=== PATIENT | female | born 1950 | race Caucasian/White ===

== ENCOUNTER → 2017-05-01 | Outpatient (CLI) | payer OTHER ==
[~2017-05-01] MED LIST: CALC500C70 PO; KETO0.5S33 OPL; MULT-506 PO; PRED1SUS3 OPL
--- NOTE | 2017-05-01 14:30 | MAMMOGRAPHY REPORT ---
BILATERAL DIGITAL SCREENING MAMMOGRAM WITH CAD: 05/01/2017 CLINICAL HISTORY: Routine screening. Patient has no complaints. TECHNIQUE: Current study was also evaluated with a Computer Aided Detection (CAD) system. Bilateral CC and MLO views were obtained. COMPARISON: Comparison is made to exams dated: 04/25/2016 mammogram, 04/21/2015 mammogram, 08/13/2013 m ammogram, 08/01/2012 mammogram, 07/28/2011 mammogram - [facility], and 01/20/2009. BREAST COMPOSITION: The tissue of both breasts is heterogeneously dense, which may obscure small mas ses. FINDINGS: No suspicious masses, calcifications, or areas of architectural distortion are noted in ei ther breast. There has been no significant interval change compared to prior exams. IMPRESSION: ACR BI-RADS CATEGORY 1: NEGATIVE There is no mammographic evidence of malignancy. A 1 year screening mammogram is recommended. The pa tient will receive written notification of the results. Approximately 10% of breast cancers are not detected with mammography. A negative mammographic report should not delay biopsy if a clinically suggestive mass is present. Charisse Perez M.D. /:05/01/2017 07:50:09 Structural Technician: Christel Alford, [facility] letter sent: Normal 1/2 BI-RADS Code: ACR BI-RADS Category 1: Negative
== END | disposition home or self-care (01) ==
LOC: C.MAMM 07:10
PROVIDERS: ATTEND Internal Medicine Geriatric Medicine
DX: Z12.31 Encounter for screening mammogram for malignant neoplasm of breast (principal)

== ENCOUNTER → 2017-06-23 | Day surgery (SDC) | payer OTHER ==
[2017-06-09 07:36] VITALS: Ht 149.9 cm; Wt 36.4 kg
[~2017-06-23] VITALS: Ht 149.9 cm; Wt 36.4 kg
[~2017-06-23] MED LIST changes: -KETO0.5S33 OPL; -MULT-506 PO; -PRED1SUS3 OPL; +PROPOFOL IV EMULSION 10 MG/ML 20 ML VIAL IV ONE
--- NOTE | 2017-06-23 09:48 | Endo History and Physical ---
History & Physical Date of Service: Jun 23, 2017. Chief Complaint: Screening Referring Physician: Samir Ferrer History of Present Illness 66 yo CF who presents for screening colonoscopy. Past Surgical History Hx Cardiac Surgery: No Hx Internal Defibrillator: No Hx Pacemaker: No Hx Abdominal Surgery: Yes () Hx of Implantable Prosthesis: No Hx Post-Op Nausea and Vomiting: No Hx Cancer Surgery: No Hx Thoracic Surgery: No Hx Orthopedic: No Hx Urinary Tract Surgery: No Family History None Social History Smoking Status: Never Smoker Hx Substance Use: No Hx Alcohol Use: No Allergies Coded Allergies: Latex1 -Allergic Contact Dermititis (Verified Allergy, Unknown, RASH IF LATEX GLOVES WORN FOR EXTENDED PERIOD OF TIME, 06/23/17) Clarithromycin (Verified Adverse Reaction, Unknown, HALLUCINATIONS, ) Current Medications Reported Home Medications Medications Dose Route/Sig Max Daily Dose Days Date Category Os-Otto 500 Plus D (Calcium/Vitamin D) Tab 1 Tab PO BID-TID 06/29/16 Reported Vital Signs Weight (Kilograms): 36.36 Height (Feet): 4 Height (Inches): 11 Date Time Temp Pulse Resp B/P (MAP) Pulse Ox O2 Delivery O2 Flow Rate FiO2 06/23/17 09:30 36.4 67 18 125/52 (76) 100 Room Air Physical Exam General Appearance: WD/WN, no apparent distress Respiratory/Chest: Auscultation: breath sounds normal Cardiovascular: Heart Auscultation: RRR Abdomen: Bowel Sounds: normal Inspection & Palpation: soft, non-distended, no tenderness, guarding & rebound Assessment and Plan Assessment: 66 yo CF who presents for screening colonoscopy. Plan: Proceed with colonoscopy.
--- NOTE | 2017-06-23 10:16 | GI REPORT ---
Procedure Date: 06/23/2017 9:47 AM Procedure: Colonoscopy Indications: Screening for colorectal malignant neoplasm Medicines: Monitored Anesthesia Care Complications: No immediate complications. Estimated Blood Loss: Estimated blood loss: none. Procedure: Pre-Anesthesia Assessment: - Prior to the procedure, a History and Physical was performed, and patient medications and allergies were reviewed. The patient's tolerance of previous anesthesia was also reviewed. The risks and benefits of the procedure and the sedation options and risks were discussed with the patient. All questions were answered, and informed consent was obtained. Prior Anticoagulants: The patient has taken no previous anticoagulant or antiplatelet agents. ASA Grade Assessment: II - A patient with mild systemic disease. After reviewing the risks and benefits, the patient was deemed in satisfactory condition to undergo the procedure. After I obtained informed consent, the scope was passed under direct vision. Throughout the procedure, the patient's blood pressure, pulse, and oxygen saturations were monitored continuously. The scope was introduced through the anus and advanced to the cecum, identified by appendiceal orifice and ileocecal valve. The colonoscopy was performed without difficulty. The patient tolerated the procedure well. The quality of the bowel preparation was good. The ileocecal valve, appendiceal orifice, and rectum were photographed. Findings: Two sessile polyps were found in the sigmoid colon and in the ascending colon. The polyps were 4 to 6 mm in size. These polyps were removed with a hot snare. Resection and retrieval were complete. Non-bleeding internal hemorrhoids were found during retroflexion. The hemorrhoids were small. Impression: - Two 4 to 6 mm polyps in the sigmoid colon and in the ascending colon, removed with a hot snare. Resected and retrieved. - Non-bleeding internal hemorrhoids. Recommendation: - Resume previous diet. - Continue present medications. - Repeat colonoscopy for surveillance based on pathology results. - Return to primary care physician as previously scheduled. Lio Lopez DO 06/23/2017 10:15:57 AM This report has been signed electronically. Note Initiated On: 06/23/2017 9:47 AM I attest to the content of the Intraoperative Record and orders documented therein, exceptions below
--- NOTE | 2017-06-23 10:17 | Discharge Instructions ---
Endoscopy Patient Instructions Date / Procedure(s) Performed Jun 23, 2017. Colonoscopy Allergy Information Coded Allergies: Latex1 -Allergic Contact Dermititis (Verified Allergy, Unknown, RASH IF LATEX GLOVES WORN FOR EXTENDED PERIOD OF TIME, 06/23/17) Clarithromycin (Verified Adverse Reaction, Unknown, HALLUCINATIONS, ) Discharge Date / Findings Jun 23, 2017. Colon polyps Internal hemorrhoids Medication Instructions OK to resume all medications today as prescribed Reported Home Medications Medications Dose Route/Sig Max Daily Dose Days Date Category Os-Otto 500 Plus D (Calcium/Vitamin D) Tab 1 Tab PO BID-TID 06/29/16 Reported Provider Instructions Activity Restrictions - No exercising or heavy lifting for 24 hours. - Do not drink alcohol the day of the procedure. - Do not drive a car or operate machinery until the day after the procedure. - Do not make any important decisions or sign important papers in 24 hours after the procedure. Following Day: - Return to full activity which may include returning to work/school. Diet Start your diet with liquids and light foods (jello, soup, juice, toast). Then eat your usual diet if not nauseated. Treatment For Common After Affects For mild abdominal pain, bloating, or excessive gas: - Rest - Eat lightly - Lie on right side Follow-Up Information Follow-up with Samir Ferrer as scheduled Anesthesia Information What You Should Know You have had a procedure that required some medicine to reduce anxiety and discomfort. This treatment is called moderate sedation. After receiving the treatment, you may be sleepy, but you will be able to breathe on your own. The effects of the treatment may last for several hours. Follow these instructions along with Activity/Diet recommendations noted above: * Do NOT do anything where dizziness or clumsiness would be dangerous. * Rest quietly at home today, then you can be up and about tomorrow. * Have a responsible person stay with you the rest of today. * You may have had an I.V. today. If so, you may take the dressing off later today. Recommendations Call your doctor if: * Trouble breathing * Continuous vomiting for more than 24 hours * Temperature above 101 degrees * Severe abdominal pain or bloating * Pain not relieved by pain medicine ordered * There is increased drainage or redness from any incision * A large amount of rectal bleeding greater than 2-3 tablespoons. (If you had a polyp/s removed or have hemorrhoids, a small amount of blood - from the rectum is to be expected.) * You have any unanswered questions or concerns. IN THE EVENT OF A SERIOUS EMERGENCY, GO TO THE NEAREST EMERGENCY ROOM Your discharge instructions were prepared by provider Lio Lopez. Patient Instructions Signature Page Fiona Roach Patient (or Guardian) Signature/Date: I have read and understand the instructions given to me by my caregivers. Caregiver/RN/Doctor Signature/Date: The above-named patient and/or guardian has received patient instructions on this date. + Original Patient Signature Page (only) stays with chart. Please make copy for patient.
--- NOTE | 2017-06-23 10:44 | Anesthesiology Progress Note ---
Anesthesia Post Op Note Date & Time Jun 23, 2017 at 10:43 Vital Signs Pain Intensity: 0 Vital Signs Past 12 Hours Date Time Temp Pulse Resp B/P (MAP) Pulse Ox O2 Delivery O2 Flow Rate FiO2 06/23/17 10:31 61 18 144/58 (86) 97 Room Air 06/23/17 10:18 71 18 144/59 (87) 99 Room Air 06/23/17 09:30 36.4 67 18 125/52 (76) 100 Room Air Notes Mental Status: alert / awake / arousable, participated in evaluation Pt Amnestic to Procedure: Yes Nausea / Vomiting: adequately controlled Pain: adequately controlled Airway Patency, RR, SpO2: stable & adequate BP & HR: stable & adequate Hydration State: stable & adequate Anesthetic Complications: no major complications apparent
[2017-06-23 10:48] VITALS: BP 151/61; PULSE 69; O2SAT 97
== END | disposition home or self-care (01) ==
LOC: C.GI 09:10
PROVIDERS: ATTEND Internal Medicine
DX: Z12.11 Encounter for screening for malignant neoplasm of colon (principal); K63.5 Polyp of colon; K64.8 Other hemorrhoids

== ENCOUNTER → 2018-05-08 | Outpatient (CLI) | payer OTHER ==
[~2018-05-08] MED LIST changes: -PROPOFOL IV EMULSION 10 MG/ML 20 ML VIAL IV ONE
--- NOTE | 2018-05-08 15:20 | MAMMOGRAPHY REPORT ---
BILATERAL DIGITAL SCREENING MAMMOGRAM TOMOSYNTHESIS WITH CAD: 05/08/2018 CLINICAL HISTORY: Routine screening. TECHNIQUE: The study was acquired using full field digital technology and interpreted from soft copy. Breast tomosynthesis in addition to standard 2D mammography was performed. Current study was also ev aluated with a Computer Aided Detection (CAD) system. COMPARISON: Comparison is made to exams dated: 05/01/2017 mammogram, 04/25/2016 mammogram, 04/21/2015 m ammogram, 08/13/2013 mammogram, 08/01/2012 mammogram, and 07/28/2011 mammogram - [facility]. BREAST COMPOSITION: The tissue of both breasts is heterogeneously dense, which may obscure small mass es. FINDINGS: The parenchymal pattern is unchanged. No developing mass, architectural distortion or cluster of susp icious microcalcifications is seen in either breast. IMPRESSION: ACR BI-RADS CATEGORY 2: BENIGN There is no mammographic evidence of malignancy. A 1 year screening mammogram is recommended.( 019) The patient will receive written notification of the results. Some breast cancers are not detected with mammography. A negative mammographic report should not marcial y biopsy if a clinically suggestive mass is present. Tere Go M.D. ay/:05/08/2018 08:08:59 Colorer Machine: RT Liv(R)(M), [facility] letter sent: Normal 1/2 BI-RADS Code: ACR BI-RADS Category 2: Benign
== END | disposition home or self-care (01) ==
LOC: C.MAMM 07:13
PROVIDERS: ATTEND Internal Medicine Geriatric Medicine
DX: Z12.31 Encounter for screening mammogram for malignant neoplasm of breast (principal)

== ENCOUNTER → 2018-05-15 | Outpatient (CLI) | payer OTHER | END | disposition home or self-care (01) | LOC: C.LABBC 12:07 | PROVIDERS: ATTEND Nurse Practitioner Adult Health | DX: J02.9 Acute pharyngitis, unspecified (principal) ==

== ENCOUNTER 2024-05-12 12:10 | Inpatient (IN) ==
[2024-05-12 12:44] LABS: iSTAT Creatinine 1.1 mg/dl (0.6-1.3); iSTAT Hemoglobin 15.3 g/dl (12.0-16.0); iSTAT Ionized Calcium 1.13 mmol/l (1.12-1.32); iSTAT Potassium 4.1 mmol/L (3.3-5.0)
--- NOTE | 2024-05-12 12:49 | XRay Report ---
XR chest 1V portable HISTORY: Stroke symptoms. COMPARISON: None. FINDINGS: The lungs are clear. Cardiac silhouette is normal in size. No pleural effusions. No pneumot horax. Old left-sided rib fractures. Mild S-shaped scoliosis of the thoracolumbar spine. Calcificatio ns within the aortic knob. IMPRESSION: No acute process. ACT 112: Negative or not required by law. Electronically signed by: Syed Walden M.D. 05/12/2024 12:48 PM
--- NOTE | 2024-05-12 12:54 | Emergency Department Note ---
Impression & Plan Cerebellar stroke, Dementia ED Provider Note NAME: SAMUEL JAIME AGE: 73 SEX: F : 1950 ARRIVES VIA: Walk-In INFORMANT: Patient, son at bedside, triage note, prior records ED PROVIDER(S): Rick Estrella MD CHIEF COMPLAINT: Falls MEDICAL DECISION MAKING: Patient presents due to concern for falls and gait imbalance ambulatory dysfunction. IV was established and blood work was obtained. Patient CT of the head does show concern for cerebellar stroke. Unsure as to time course of onset so not a TNK candidate. Blood work shows a normal white count hemoglobin and platelet count kidney function is unremarkable. Sodium 134. BSG 122 but nonfasting not DKA. Patient's chest x-ray is unremarkable. CT of the head does show a hypodensity in the right cerebellum. Patient was ordered [address] angiography of the head and neck ordered as well as MRI brain. I did speak with the on-call hospital service and the patient was admitted to the medicine service. Imaging results deferred to inpatient service but ordered to facilitate workup. Patient CT angiography of the head and neck right posterior inferior cerebellar artery is likely occluded. Brain MRI confirms acute right cerebellar infarct involving the posterior inferior cerebellar artery territory. Old small left cerebellar infarcts. Discussion w/ other healthcare providers: Dr. Hilton inpatient medicine service Prior /Outside records reviewed: I reviewed a neurology visit from March 12, [address] Clemons. Patient currently on memantine and donepezil for dementia. Patient has had progressive decline per this note. I also reviewed part of the wellness visit from [facility] from May 2022. Patient with a history of dementia osteoporosis and dyslipidemia Differential diagnosis: Infection, dehydration, metabolic abnormality, hypo/hyperglycemia, electrolyte imbalance, anemia, UTI, pneumonia, thyroid dysfunction among others were considered. Diagnostics, as interpreted by me: ECG: Normal sinus rhythm heart rate of 68, normal intervals, normal axis no ST elevations, T wave version in V2. No significant change for comparison from September 19, 2002 Cardiac monitoring: An order was placed for continuous cardiac monitoring. The monitor shows a rate of 62 with sinus rhythm. Patient was placed on pulse oximetry Medical decision rules: None Imaging studies: I informally interpreted the patient's chest x-ray does not show evidence of pneumonia or pneumothorax with formal report to follow. HPI: Patient presents with son at bedside due to concern for worsening falls. He states that patient had 3 falls today. 2 times when getting up from the couch fell back onto the couch and another time where she hit the side of a cabinet with her shoulder. No reported head strike or LOC. One of the falls he did catch on one of his in-home cameras. Patient denies any chest pains no headache no nausea vomiting. Patient denies any numbness tingling or focal weakness. No prior history of stroke. Son reports that she has had decreased appetite in the last several days. Patient is compliant with medications and does live with the son. Patient's other son is power of document review attorney but lives in [place]. PAST MEDICAL HISTORY: See Below PAST SURGICAL HISTORY: See Below SOCIAL HISTORY: See Below HOME MEDICATIONS: See Below ALLERGIES: See Below VITALS: See Below PHYSICAL EXAMINATION: GENERAL: NAD, non-toxic. EYE EXAM: Normal conjunctiva. PERRL, no anisocoria and EOM's grossly intact w/o pain. OROPHARYNX: Moist mucus membranes, grossly normal dentition. NECK: Trachea midline, no stridor. LUNGS: Clear to auscultation. Normal chest wall mechanics. HEART: NSR, no MRG. ABDOMEN: Abdomen soft, non-tender, no masses, no rebound or guarding. BACK: No CVA TTP. SKIN: No rashes and no bruising. UPPER EXTREMITIES: Upper extremities are grossly normal. LOWER EXTREMITIES: Grossly normal, no edema. NEURO EXAM: Awake and alert follows basic commands, cranial nerves II-XII grossly intact, normal speech, moves all 4 extremities. Good [id number], unable to follow commands with [id number] Past Med/Surg History Problem List (Updated 05/12/24 @ 19:03 by Rick Estrella MD) Cerebellar stroke (Acute) Hypothyroidism Vitamin B12 deficiency Sleep disturbance Osteoporosis (Acute) Dyslipidemia (Acute) Underweight Anxiety Dementia (Acute) Medical History Hx of fracture of foot (10/17/22) currently in cast on left foot Acute nondisplaced transverse fracture within the proximal shaft of the left fifth metatarsal consistent with a Taylor fracture. From fall. Saw orthopedics History of Lyme disease Osteoporosis Internal hemorrhoids Postmenopausal atrophic vaginitis Surgical History History of surgical procedure on eye proper using laser lt eye SLT History of History of colonoscopy S/P LEEP Family History Father Atherosclerotic vascular disease Mother Stroke Grandmother Family history of diabetes mellitus Other No family history of adverse response to anesthesia Denies family history of Ovarian cancer Prostate cancer Myocardial infarction Breast cancer Colorectal cancer Social History Smoking Status: Never smoker Second Hand Exposure: No; Do You Dip or Chew Tobacco: No; Hx Alcohol Use: No Hx Substance Use: No Preferred Language: Macedonian Communication Ability: Effective Visual Impairment: Limited Hearing Ability: Normal Head Bucker Required: No Beliefs That Will Affect Care: None Current Living Situation: Family Current Living Situation Comment: sons live with pt current occupational status: retired How many Children do You have: 3 Feels Safe at Home: Yes Childhood Exposure to Second-Hand Smoke: Yes (father smoked in home ) caffeine: No Physical Activity Frequency: Daily Physical Activity Frequency Comment: walks outside Seatbelt Use: always Sunscreen Use: Yes Assistive Devices: Glasses Allergies Allergies Allergy/AdvReac Type Severity Reaction Status Date / Time clarithromycin AdvReac Intermediate HALLUCINATI Verified 03/12/24 08:35 ONS latex AdvReac Mild RASH IF Verified 03/12/24 08:35 LATEX GLOVES WORN FOR EXTENDED PERIOD OF TIME Home Meds Home Medications Medication Instructions Recorded Confirmed calcium carbonate (Calcium 600) 600 mg PO QAM 05/13/22 05/12/24 Previous Rx's Medication Instructions Recorded levothyroxine 25 mcg tablet 25 mcg PO DAILY #30 tabs 01/11/24 mecobalamin (vitamin B12) 1,000 1,000 mcg PO DAILY #30 tabs 01/11/24 mcg chewable tablet mirtazapine 7.5 mg tablet 7.5 mg PO DAILY #30 tabs 02/19/24 donepezil 10 mg tablet 10 mg PO QAM 90 days #90 tabs 03/12/24 memantine 10 mg tablet 10 mg PO BID 90 days #180 tabs 03/12/24 Results & Data (ED) Vital Signs Vital Signs - 24 hr 05/12/24 12:12 05/12/24 12:30 05/12/24 12:36 Temperature 36.7 C Temperature Source Temporal Artery Scan Pulse Rate 63 Pulse Rate [Apical] 65 Pulse Rhythm Regular Pulse Strength Normal Respiratory Rate 19 16 Respiratory Effort / Characteristics Non-Labored Respiratory Depth Normal Respiratory Pattern Regular Blood Pressure 161/73 H Blood Pressure [Right Arm] 155/72 H Blood Pressure Mean 102 Blood Pressure Mean [Right Arm] 99 Blood Pressure Position Sitting Pulse Oximetry 97 95 96 Oxygen Delivery Method Room Air Room Air Room Air Sepsis Recent Fever Within 48 Hours No Sepsis New/Unexplained Change in Mental Status No Sepsis Action Taken by Nursing No Action Required 05/12/24 13:15 05/12/24 13:17 05/12/24 13:21 Temperature Temperature Source Pulse Rate 64 61 Pulse Rate [Apical] Pulse Rhythm Pulse Strength Respiratory Rate 18 Respiratory Effort / Characteristics Respiratory Depth Respiratory Pattern Blood Pressure Blood Pressure [Right Arm] Blood Pressure Mean Blood Pressure Mean [Right Arm] Blood Pressure Position Pulse Oximetry Oxygen Delivery Method Room Air Sepsis Recent Fever Within 48 Hours Sepsis New/Unexplained Change in Mental Status Sepsis Action Taken by Nursing 05/12/24 13:27 05/12/24 13:30 05/12/24 13:33 Temperature Temperature Source Pulse Rate 59 L 61 Pulse Rate [Apical] Pulse Rhythm Pulse Strength Respiratory Rate 17 15 Respiratory Effort / Characteristics Respiratory Depth Respiratory Pattern Blood Pressure 154/76 H Blood Pressure [Right Arm] Blood Pressure Mean 98 Blood Pressure Mean [Right Arm] Blood Pressure Position Pulse Oximetry Oxygen Delivery Method Sepsis Recent Fever Within 48 Hours Sepsis New/Unexplained Change in Mental Status Sepsis Action Taken by Nursing 05/12/24 13:48 05/12/24 14:00 05/12/24 14:15 Temperature Temperature Source Pulse Rate 66 77 Pulse Rate [Apical] Pulse Rhythm Pulse Strength Respiratory Rate 11 L 12 Respiratory Effort / Characteristics Respiratory Depth Respiratory Pattern Blood Pressure 131/72 Blood Pressure [Right Arm] Blood Pressure Mean 85 Blood Pressure Mean [Right Arm] Blood Pressure Position Pulse Oximetry Oxygen Delivery Method Sepsis Recent Fever Within 48 Hours Sepsis New/Unexplained Change in Mental Status Sepsis Action Taken by Nursing 05/12/24 15:42 Temperature Temperature Source Pulse Rate Pulse Rate [Apical] 66 Pulse Rhythm Pulse Strength Respiratory Rate 18 Respiratory Effort / Characteristics Respiratory Depth Respiratory Pattern Blood Pressure Blood Pressure [Right Arm] 170/97 H Blood Pressure Mean Blood Pressure Mean [Right Arm] 121 Blood Pressure Position Pulse Oximetry 98 Oxygen Delivery Method Room Air Sepsis Recent Fever Within 48 Hours Sepsis New/Unexplained Change in Mental Status Sepsis Action Taken by Residential Medications Current Medication List: was personally reviewed by me Laboratory Data Attestation: I reviewed the patient's lab results. 05/12/24 12:20 05/12/24 12:20 Lab Results 05/12/24 05/12/24 Range/Units 12:20 12:32 WBC 10.33 (4.8-10.8) K/ul RBC 4.72 (4.20-5.40) M/uL Hgb 14.4 (12.0-16.0) g/dl POC Hgb 15.3 (12.0-16.0) g/dl Hct 43.9 (37.0-47.0) % POC Hct 45 (37-47) % MCV 93.0 (80.0-100.0) fL MCH 30.5 (25.0-34.0) pg MCHC 32.8 (32.0-36.0) g/dL RDW Std Deviation 45.0 (36.4-46.3) fL RDW Coeff of Arlyn 13.2 (11.5-14.5) % Plt Count 215 (130-400) K/uL MPV 12.8 H (9.4-12.4) fL PT 10.9 (9.0-12.0) Seconds INR 1.0 (0.9-1.1) APTT 23 (21-31) Seconds PTT Ratio 0.9 POC Sodium 138 (135-144) mmol/L Sodium 134 L (136-145) mmol/L POC Potassium 4.1 (3.3-5.0) mmol/L Potassium 4.3 (3.5-5.1) mmol/L POC Chloride 103 (101-112) mmol/L Chloride 100 (98-107) mmol/L Carbon Dioxide 26 (21-32) mmol/L POC Total CO2 24 (24-31) mmol/L Anion Gap 8 (3-11) POC Anion Gap 16.0 (16-25) mmol/L POC BUN 18 (7-18) mg/dl BUN 18 (6-23) mg/dl Creatinine 1.04 (0.6-1.2) mg/dl POC Creatinine 1.1 (0.6-1.3) mg/dl Est Cr Clr Drug Dosing 30.6 ml/min Est GFR ( Amer) 61.3 ml/min Est GFR (Non-Af Amer) 52.9 ml/min BUN/Creatinine Ratio 17.3 (10-20) Glucose 122 H (70-99(Fasting)) mg/dl POC Glucose (other) 127 H (70-99) mg/dl Calcium 9.9 (8.6-10.3) mg/dl POC Ioniz Calcium Destiny 1.13 (1.12-1.32) mmol/l Magnesium 2.4 (1.7-2.4) mg/dl Total Bilirubin 0.3 (0.2-1.0) mg/dl AST 17 (13-39) U/L ALT 21 (7-52) U/L Alkaline Phosphatase 66 (34-104) U/L Total Protein 8.2 (6.0-8.3) gm/dl Albumin 4.6 (3.4-5.0) gm/dl Globulin 3.6 (2.5-4.0) gm/dl Albumin/Globulin Ratio 1.3 (0.9-2) Administered Medications Discontinued Medications Aspirin (Aspirin Chew 324 Mg) 324 mg PO NOW STA Stop: 05/12/24 13:16 Last Admin: 05/12/24 13:23 Dose: 324 mg Documented By: JEAN Clopidogrel Bisulfate (Clopidogrel Bisulfate 300 Mg Tab) 300 mg PO NOW STA Stop: 05/12/24 15:23 Last Admin: 05/12/24 15:58 Dose: 300 mg Documented By: KYLE Sodium Chloride (Nss) 500 mls @ 999 mls/hr IV .Q31M ONE Stop: 05/12/24 13:44 Last Infusion: 05/12/24 15:14 Dose: Infused Documented By: Admin: 05/12/24 13:26 Dose: 999 mls/hr Documented By: JEAN Ioversol (Optiray 320 125ml) 112 ml IV ONCE ONE Stop: 05/12/24 13:58 Last Admin: 05/12/24 13:57 Dose: 112 ml Documented By: UBALDO Imaging Data Radiologist's Impression: Chest X-Ray 05/12/24 12:36 XR chest 1V portable HISTORY: Stroke symptoms. COMPARISON: None. FINDINGS: The lungs are clear. Cardiac silhouette is normal in size. No pleural effusions. No pneumothorax. Old left-sided rib fractures. Mild S-shaped scoliosis of the thoracolumbar spine. Calcifications within the aortic knob. IMPRESSION: No acute process. ACT 112: Negative or not required by law. Electronically signed by: Syed Walden M.D. 05/12/2024 12:[address] 05/12/24 12:[address] DOSE: 547.75 mGy.cm HISTORY: Neuro deficit, acute, stroke suspected TECHNIQUE: Multiaxial CT images of the head were performed without the use of intravenous contrast. Automated exposure control was utilized for this study. A dose lowering technique was utilized adhering to the principles of ALARA. Comparison: Brain MRI 08/27/2019. Findings: The paranasal sinuses and mastoid air cells are clear. The calvarium and skull base are intact. There is no mass, hematoma, or midline shift. White matter hypodensity is nonspecific but suggestive of microvascular ischemic change. The ventricles and sulci demonstrate mild age-related involutional changes. Wedge-shaped hypodensity within the right cerebellar hemisphere measuring up to 2.5 cm consistent with an acute to subacute infarct. There is an old linear lacunar infarct within the left cerebellar hemisphere. Impression: Wedge-shaped hypodensity within the right cerebellar hemisphere consistent with an acute to subacute cerebellar infarct. ACT 112: Negative or not required by law. Electronically signed by: Syed Walden M.D. 05/12/2024 1:04 PM Head CTA 05/12/24 13:42 HEAD & NECK CTA HISTORY: Fall. Stroke symptoms. TECHNIQUE: Multiaxial CT images of the head were performed following the intravenous administration of contrast to evaluate the major cerebral vessels. Multiaxial CT images of the neck were also performed following the intravenous administration of contrast to evaluate the major cervical vessels. 3D/MIP images were also obtained. Sagittal and coronal reformats were reviewed. A dose lowering technique was utilized adhering to the principles of ALARA. COMPARISON: Head CT 05/12/2024. FINDINGS: Redemonstration of the wedge-shaped hypodensity within the right cerebellar hemisphere consistent with an acute to subacute infarct Visualized intracranial internal carotid arteries, distal vertebral arteries, and basilar artery are widely patent. There is no significant stenosis, occlusion, or aneurysm seen within the bilateral ACAs, MCAs, or departmental buyer. The right posterior inferior cerebellar artery is only partially visualized and likely occluded. This likely accounts for the right cerebellar infarct.. The major dural venous sinuses are patent. The visualized aortic arch and normal in caliber. There is mild focal narrowing within the proximal left subclavian artery and mid right subclavian artery. Subtle irregularity within the mid bilateral internal carotid arteries and distal vertebral arteries suggesting the possibility of fibromuscular dysplasia. There is associated moderate focal narrowing within the distal right vertebral artery at the C2 level on image 219. This demonstrates up to 50% stenosis. However, no dissection identified. The left vertebral artery is dominant. Minimal calcified plaque within the right carotid bifurcation. There is no significant stenosis, occlusion, or dissection identified within the bilateral common carotid, internal carotid, or left vertebral artery. IMPRESSION: 1. Redemonstration of the wedge-shaped hypodensity within the right cerebellar hemisphere consistent with an acute to subacute infarct. 2. The right posterior inferior cerebellar artery is only partially visualized and likely occluded. This likely accounts for the right cerebellar infarct.. 3. Moderate focal narrowing within the distal right vertebral artery at the C2 level of approximately 50%. 4. Subtle irregularity within the mid bilateral internal carotid arteries and distal vertebral arteries suggesting the possibility of fibromuscular dysplasia. ACT 112: Negative or not required by law. Electronically signed by: Syed Walden M.D. 05/12/2024 2:43 PM Neck CTA 05/12/24 13:42 HEAD & NECK CTA HISTORY: Fall. Stroke symptoms. TECHNIQUE: Multiaxial CT images of the head were performed following the intravenous administration of contrast to evaluate the major cerebral vessels. Multiaxial CT images of the neck were also performed following the intravenous administration of contrast to evaluate the major cervical vessels. 3D/MIP images were also obtained. Sagittal and coronal reformats were reviewed. A dose lowering technique was utilized adhering to the principles of ALARA. COMPARISON: Head CT 05/12/2024. FINDINGS: Redemonstration of the wedge-shaped hypodensity within the right cerebellar hemisphere consistent with an acute to subacute infarct Visualized intracranial internal carotid arteries, distal vertebral arteries, and basilar artery are widely patent. There is no significant stenosis, occlusion, or aneurysm seen within the bilateral ACAs, MCAs, or departmental buyer. The right posterior inferior cerebellar artery is only partially visualized and likely occluded. This likely accounts for the right cerebellar infarct.. The major dural venous sinuses are patent. The visualized aortic arch and normal in caliber. There is mild focal narrowing within the proximal left subclavian artery and mid right subclavian artery. Subtle irregularity within the mid bilateral internal carotid arteries and distal vertebral arteries suggesting the possibility of fibromuscular dysplasia. There is associated moderate focal narrowing within the distal right vertebral artery at the C2 level on image 219. This demonstrates up to 50% stenosis. However, no dissection identified. The left vertebral artery is dominant. Minimal calcified plaque within the right carotid bifurcation. There is no significant stenosis, occlusion, or dissection identified within the bilateral common carotid, internal carotid, or left vertebral artery. IMPRESSION: 1. Redemonstration of the wedge-shaped hypodensity within the right cerebellar hemisphere consistent with an acute to subacute infarct. 2. The right posterior inferior cerebellar artery is only partially visualized and likely occluded. This likely accounts for the right cerebellar infarct.. 3. Moderate focal narrowing within the distal right vertebral artery at the C2 level of approximately 50%. 4. Subtle irregularity within the mid bilateral internal carotid arteries and distal vertebral arteries suggesting the possibility of fibromuscular dysplasia. ACT 112: Negative or not required by law. Electronically signed by: Syed Walden M.D. 05/12/2024 2:43 PM Brain MRI 05/12/24 13:43 Brain MRI WITHOUT CONTRAST HISTORY: R sided cerebellar cva TECHNIQUE: Multiplanar multisequence MRI of the brain was performed without the use of contrast. COMPARISON STUDY: Head CT 05/12/2024. Brain MRI 08/27/2019. FINDINGS: Wedge-shaped focus of restricted diffusion within the right cerebellar hemisphere measuring up to 3.4 cm consistent with an acute infarct. This is located within the right posterior inferior cerebellar artery territory. No additional acute infarcts within the brain. Mild edema at the right cerebral infarct without significant mass effect. Moderate atrophy and mild microvascular ischemic changes are noted. The midline structures are intact. There is no mass, hematoma, or midline shift. The major vascular flow-voids at the skull base are well-maintained. Old lacunar infarcts within the left cerebellar hemisphere. Prior bilateral lens replacement. The paranasal sinuses and mastoid air cells are clear. Punctate scattered foci of susceptibility artifact within the brain. This raises the possibility of cerebral amyloid angiopathy. IMPRESSION: 1. Confirmation of the acute right cerebral infarct involving the posterior inferior cerebellar artery territory. 2. Old small left cerebellar infarcts. 3. Atrophy and microvascular ischemic changes. 4. Punctate scattered foci of susceptibility artifact within the brain. This raises the possibility of cerebral amyloid angiopathy. No acute intracranial hemorrhage. ACT 112: Negative or not required by law. Electronically signed by: Syed Walden M.D. 05/12/2024 3:45 PM Discharge Plan Visit Data Chief Complaint: Fall Stated Complaint: loss of appetite, fall, dizziness ED Provider: Rick Estrella Discharge Problem: Cerebellar stroke, Dementia Patient Disposition: Admitted As Inpatient Discharge Instructions Interventions: ED Discharge Assessment Last Done: 05/12/24 17:55 Discharge Problem: Dementia Qualifiers: Dementia type: unspecified type
[2024-05-12 13:00] LABS: Hematocrit (blood only) 43.9 % (37.0-47.0); Hemoglobin 14.4 g/dl (12.0-16.0); Mean Corpuscular Hemoglobin 30.5 pg (25.0-34.0); Mean Corpuscular Hgb Conc 32.8 g/dL (32.0-36.0); Mean Platelet Volume 12.8 fL (9.4-12.4); Platelet Count 215 K/uL (130-400); RDW Coefficient of Variation 13.2 % (11.5-14.5); Red Blood Count 4.72 M/uL (4.20-5.40); White Blood Count 10.33 K/ul (4.8-10.8)
--- NOTE | 2024-05-12 13:06 | CT Scan Report ---
HEAD CT NONCONTRAST CT DOSE: 547.75 mGy.cm HISTORY: Neuro deficit, acute, stroke suspected TECHNIQUE: Multiaxial CT images of the head were performed without the use of intravenous contrast. A utomated exposure control was utilized for this study. A dose lowering technique was utilized adheri ng to the principles of ALARA. Comparison: Brain MRI 08/27/2019. Findings: The paranasal sinuses and mastoid air cells are clear. The calvarium and skull base are int act. There is no mass, hematoma, or midline shift. White matter hypodensity is nonspecific but sugges tive of microvascular ischemic change. The ventricles and sulci demonstrate mild age-related involuti onal changes. Wedge-shaped hypodensity within the right cerebellar hemisphere measuring up to 2.5 cm consistent with an acute to subacute infarct. There is an old linear lacunar infarct within the left cerebellar hemisphere. Impression: Wedge-shaped hypodensity within the right cerebellar hemisphere consistent with an acute to subacute cerebellar infarct. ACT 112: Negative or not required by law. Electronically signed by: Syed Walden M.D. 05/12/2024 1:04 PM
[2024-05-12 13:15] LABS: Partial Thromboplastin Ratio 0.9; Partial Thromboplastin Time 23 Seconds (21-31); Prothrombin Time 10.9 Seconds (9.0-12.0)
[2024-05-12] MEDS: ASPIRIN CHEW 324 MG PO STA (13:23)
[2024-05-12 13:24] LABS: Albumin Globulin Ratio 1.3 (0.9-2); Albumin Level 4.6 gm/dl (3.4-5.0); BUN Creatinine Ratio 17.3 (10-20); Bilirubin,Total 0.3 mg/dl (0.2-1.0); Calcium 9.9 mg/dl (8.6-10.3); Creatinine Clr Calc Pharmacy 30.6 ml/min; Est GFR (African American) 61.3 ml/min; Est GFR (Non-African American) 52.9 ml/min; Globulin 3.6 gm/dl (2.5-4.0); Magnesium 2.4 mg/dl (1.7-2.4); Total Protein 8.2 gm/dl (6.0-8.3)
[2024-05-12] MEDS: SODIUM CHLORIDE 0.9% 500 ML IV ONE (13:26)
[2024-05-12 13:29] LABS: Potassium 4.3 mmol/L (3.5-5.1)
[2024-05-12] MEDS: OPTIRAY 320 125ml IV ONE (13:57)
--- NOTE | 2024-05-12 14:03 | History & Physical Report ---
Date of Service May 12, 2024 Assessment & Plan (1) Cerebellar stroke: Plan: Right cerebellar infarct in the territory of Right PICA (posterior inferior cerebellar artery) - no additional acute infarcts within brain per radiologist read of brain MRI - likely occurred sometime in the morning on 05/12/24 PLAN: - given one dose of aspirin 325mg in ER which has been discontinued - to continue on Plavix monotherapy in order to prevent potential bleeding and swelling in the posterior fossa, where there is not much space to expand without causing mass effects - starting on Atorvastatin 40mg PO qAM to start tomorrow morning - Plavix 75mg PO qAM - allowing for permissive hypertension up to 200/105, Labetalol 5mg IV q6h prn if pt exceeds - daily EKGs along with telemetry - obtain echocardiogram to assess for septal defect which could have allowed embolus to travel from systemic circulation to the R PICA - continue to monitor vital signs - periodic assessments for alertness and orientation, speech, coordination, strength, and sensation - continue to monitor for mental status changes (2) Dyslipidemia: Plan: - will be started on Atorvastatin 40mg PO qAM as part of stroke protocol - Plavix 75mg PO qAM starting tomorrow morning - obtain lipid panel (3) Vitamin B12 deficiency: Plan: consider obtaining B12 level, but less concern as most recent value was above normal range (4) Dementia: Plan: - periodic assessments for alertness and orientation, speech, coordination, strength, and sensation - continue to monitor for mental status changes - continue home medications: donepezil 10mg PO qAM and memantine 10mg PO BID (5) Osteoporosis: Plan: continue on calcium carbonate 600mg PO qAM (6) Anxiety: Plan: - periodic assessments for alertness, orientation, and speech patterns - continue to monitor for mental status changes - continue on home medication: mirtazapine 7.5mg PO QD (7) Hypothyroidism: Plan: continue on home medication: levothyroxine 25mcg PO QD Admission and Anticipated Discharge Date Admission Date: admission: 05/12/24 History of Present Illness Chief Complaint: falls, instability, no head trauma Primary Care Provider: Arthur Telles DO Fiona is a 73yo female with PMHx hypothyroidism, vitamin B12 deficiency, dyslipidemia, Alzheimer's dementia on memantine and donepezil, osteoporosis, and anxiety BIB son for concerns about increasing frequency of falls. No history of prior stroke, not previously on statin. Patient lives at home with son and sister, son endorses that patient had very little energy and appetite yesterday (05/11/24) upon waking up, compared to the day before (05/10/24) in which she had good energy and appetite, son denies any symptoms of nausea, vomiting, headache, dizziness, weakness, numbness or tingling. Today, patient had 3 falls: 1. getting up from sitting on couch, patient took a step or 2 before falling to her left side back onto the couch around 9:30am 2. similar to first 3. in kitchen, patient was walking and fell to her left and hit her left shoulder on wood cupboard around 10:30-11am No head trauma with any of the falls, no nausea, vomiting, headache, weakness, numbness or tingling was found at the time, but son endorses pt was wobbly on her feet as he tried to support her. Due to the falls and lack of balance, son decided to bring her to ED. En route to [facility] ED, son endorses patient had slurred speech and would repeat herself a few times such as things she saw on road signs. In the ED: patient in room with her son and son's partner, patient alert and oriented to person, appearing in pleasant mood with good eye contact and not appearing in acute distress. Patient not endorsing any pain, nausea, dizziness, headache, weakness, numbness, or tingling at time of interview, around 4pm. Son was able to relay the above information about yesterday and today's events. Patient, however, did not recall having any falls earlier today, nor did she recall being more tired and having less appetite than usual yesterday. Allergies Allergy/AdvReac Type Severity Reaction Status Date / Time clarithromycin AdvReac Intermediate HALLUCINATI Verified 03/12/24 08:35 ONS latex AdvReac Mild RASH IF Verified 03/12/24 08:35 LATEX GLOVES WORN FOR EXTENDED PERIOD OF TIME Home Medications Medication Instructions Recorded Confirmed Type calcium carbonate (Calcium 600) 600 mg PO QAM 05/13/22 05/12/24 History levothyroxine 25 mcg tablet 25 mcg PO DAILY #30 tabs 01/11/24 05/12/24 Rx mecobalamin (vitamin B12) 1,000 1,000 mcg PO DAILY #30 tabs 01/11/24 05/12/24 Rx mcg chewable tablet mirtazapine 7.5 mg tablet 7.5 mg PO DAILY #30 tabs 02/19/24 05/12/24 Rx donepezil 10 mg tablet 10 mg PO QAM 90 days #90 tabs 03/12/24 05/12/24 Rx memantine 10 mg tablet 10 mg PO BID 90 days #180 tabs 03/12/24 05/12/24 Rx Past Med/Surg History Problem List (Updated 05/12/24 @ 17:01 by Jason Hummel DO) Cerebellar stroke Hypothyroidism Vitamin B12 deficiency Sleep disturbance Osteoporosis (Acute) Dyslipidemia (Acute) Underweight Anxiety Dementia Medical History Hx of fracture of foot (10/17/22) History of Lyme disease Osteoporosis Internal hemorrhoids Postmenopausal atrophic vaginitis Surgical History History of surgical procedure on eye proper using laser History of History of colonoscopy S/P LEEP Family History Father Atherosclerotic vascular disease Mother Stroke Grandmother Family history of diabetes mellitus Other No family history of adverse response to anesthesia Denies family history of Ovarian cancer Prostate cancer Myocardial infarction Breast cancer Colorectal cancer Social History Smoking Status: Never smoker Second Hand Exposure: No; Do You Dip or Chew Tobacco: No; Hx Alcohol Use: No Hx Substance Use: No Preferred Language: [place] Communication Ability: Effective Visual Impairment: Limited Hearing Ability: Normal Regulatory Manager Required: No Beliefs That Will Affect Care: None Current Living Situation: Family Current Living Situation Comment: sons live with pt current occupational status: retired How many Children do You have: 3 Feels Safe at Home: Yes Childhood Exposure to Second-Hand Smoke: Yes (father smoked in home ) caffeine: No Physical Activity Frequency: Daily Physical Activity Frequency Comment: walks outside Seatbelt Use: always Sunscreen Use: Yes Assistive Devices: Glasses Review of Systems Review of Systems: All systems reviewed & are unremarkable except as noted in HPI & below Constitutional: as per Subjective / HPI Physical Exam Constitutional: appears stated age, not appearing in acute distress, lying comfortably in ED room bed A&O to self and place. Eyes: PERRL, conjunctivae normal, anicteric sclerae ENMT: external ear and nose normal, oropharynx normal Neck: normal visual inspection Respiratory: normal respiratory effort, lungs clear to auscultation Cardiovascular: RRR, no murmur, no edema Gastrointestinal (Abdomen): normal bowel sounds, soft, nontender, no hepatosplenomegaly Musculoskeletal: no cyanosis or clubbing, extremities motor strength 5/5 Head/Neck/Chest: normocephalic and head atraumatic Skin: no rashes, warm and dry Neurologic: patellar DTR's 2+ bilat, sensation intact and PERRL, EOMI, accommodation nl, no face palsy, no dysarthria CN's II-XI intact bilaterally and moves all extremities Coordination: + abnormal [id number]-bt-[id number] test Able to follow most commands well. Some difficulty isolating one body part at a time, such as moving tongue to the side while keeping head still. Coordination difficulty as well, particularly mbah-[id number] test, in which she was able to move her legs superiorly, parallel a few inches away from opposite chi b/l. Able to stand unsupported with eyes closed (son standing close behind in case support is needed), slight wobbling but no significant listing in any direction No pronator drift observed. Gait slightly unsteady but was able to walk in a straight line from one end of room to the other and back, unsupported. Psychiatric: Orientation: alert, oriented to person and cooperative Eye Con tact: good eye contact Speech: normal rate/rhythm/volume of speech Affect: euthymic affect Insight: + limited insight Judgment: + limited judgement Results & Data Results & Data Vital Signs (Past 12 Hours) Vital Signs Temp Pulse Pulse Resp BP BP Pulse Ox 05/12/24 13:33 61 15 05/12/24 13:30 154/76 H 05/12/24 13:27 59 L 17 05/12/24 13:21 61 18 05/12/24 13:17 64 05/12/24 12:36 96 05/12/24 12:30 65 16 155/72 H 95 05/12/24 12:12 36.7 C 63 19 161/73 H 97 O2 Del Method 05/12/24 13:33 05/12/24 13:30 05/12/24 13:27 05/12/24 13:21 05/12/24 13:17 05/12/24 12:36 Room Air 05/12/24 12:30 Room Air 05/12/24 12:12 Room Air Diagnostic Findings CT Head & Neck: CThead: wedge-shaped hypodensity within the right cerebellar hemisphere consistent with acute to subacute cerebellar infarct. CTAhead/neck: Right PICA partially visualized and likely occluded, likely accounting for right cerebellar infarct. - Moderate focal narrowing at the distal right vertebral artery at C2 approximately 50%.? Changes consistent with fibromuscular dysplasia. MRI Brain: FINDINGS: Wedge-shaped focus of restricted diffusion within the right cerebellar hemisphere measuring up to 3.4 cm consistent with an acute infarct. This is located within the right posterior inferior cerebellar artery territory. No additional acute infarcts within the brain. Mild edema at the right cerebral infarct without significant mass effect. Moderate atrophy and mild microvascular ischemic changes are noted. The midline structures are intact. There is no mass, hematoma, or midline shift. The major vascular flow-voids at the skull base are well-maintained. Old lacunar infarcts within the left cerebellar hemisphere. Prior bilateral lens replacement. The paranasal sinuses and mastoid air cells are clear. Punctate scattered foci of susceptibility artifact within the brain. This raises the possibility of cerebral amyloid angiopathy. IMPRESSION: 1. Confirmation of the acute right cerebellar infarct involving the posterior inferior cerebellar artery territory. 2. Old small left cerebellar infarcts. 3. Atrophy and microvascular ischemic changes. 4. Punctate scattered foci of susceptibility artifact within the brain. This raises the possibility of cerebral amyloid angiopathy. No acute intracranial hemorrhage. Code Status & VTE Plan Code Status currently DNR, DNI Supervising Physician Co-Signing Physician Notes Patient seen and examined, chart reviewed, case discussed with Dr. Hummel and I agree with the assessment and plan as above except as otherwise noted Labs and images reviewed 73-year-old female with past medical history of Alzheimer's dementia, progressive on memantine/donepezil. Last MMSE 22/30 and independent for basic ADLs only. Prior MRIs with atrophy and chronic small vessel change. No prior history of CVA/WV/CAD. EKG normal sinus rhythm with no territorial ST segment changes, concordant T wave inversion in V2. Presented to the ER with gait disturbance, poor balance. Left wrist bulge at the side. Unclear onset of symptoms. Last known well suspected evening prior but exact time of onset not known. CThead is with a wedge-shaped hypodensity within the right cerebellar hem isphere consistent with acute to subacute cerebellar infarct. CTAhead/neck:: Right PICA partially visualized and likely occluded, likely accounting for right cerebellar infarct. Moderate focal narrowing at the distal right vertebral artery at C2 approximately 50%.? Changes consistent with fibromuscular dysplasia. MRI pending Echo pending Patient received aspirin 325 mg while in the ER Was not evaluated as a stroke alert due to suspected subacute findings and unclear onset. Thrombolysis not indicated due to unclear onset, and suspected onset greater than 4 hours. Patient seen at the bedside. Good strength, elbow flexion, shoulder internal rotation/external rotation, abduction, ankle dorsiflexion/plantarflexion all 5/5 with Beronica strength. Endorses sensation is intact to soft touch in hands and feet. Kyqk-pi-cbel is with some difficulty finding heel to within less than 6 inches of the opposite chi, but is able to collide heel up and down with a smooth motion. Dysmetria appears improved from prior report. No facial asymmetry. Pupils are equal. Vision and hearing are grossly intact. Acute right celebrate lower stroke presenting with left dysmetria/gait inst ability Case was reviewed with neurology. Recommended Plavix load now, and then transition to Plavix monotherapy. DAPT not unreasonable however given increased risk of complications if there is hemorrhagic conversion/edema in her cerebellar stroke we will dissipate Plavix monotherapy at this time. Permissive hypertension until morning of 05/13 given unclear onset of symptoms. To minimize risk of bleeding will lower parameters to goal BP less than 200/105. Labetalol on-call. Extensive discussion with patient, and family including surrogate decision makers by phone. Covered patient's progression, general stroke management, and her current reevaluation. No additional questions at time of call. CODE STATUS reviewed and discussed nature and success rates of resuscitation, and full code/conditional code/DNR/DNI and what each entails. Sons Ed and Mark are present for call or surrogate DM, Fiona due to dementia is unable to elicit the risk/benefits of resuscitation as they apply to her due to dementia however is included in the call with her sons. They agree that she would not want aggressive measures should she undergo an arrest, and CPR/intubation are not consistent with her goals of care and would like CODE STATUS to be DNR/DNI. CODE STATUS updated. No additional concerns at time of discussion. Agree with remaining workup above. Patient is sinus on admission Resident Activity Tracking Resident Involvement: Resident Care Provided Care Provided: Adult Hospital Medicine (4) Dementia Alzheimer's disease onset: unspecified onset Dementia behavioral or psychological symptom: with anxiety Dementia severity: moderate Dementia type: Alzheimer's Qualified Code(s): G30.9 - Alzheimer's disease, unspecified; F02.B4 - Dementia in other diseases classified elsewhere, moderate, with anxiety (7) Hypothyroidism Hypothyroidism type: unspecified Qualified Code(s): E03.9 - Hypothyroidism, unspecified
--- NOTE | 2024-05-12 14:46 | CT Scan Report ---
HEAD & NECK CTA HISTORY: Fall. Stroke symptoms. TECHNIQUE: Multiaxial CT images of the head were performed following the intravenous administration o f contrast to evaluate the major cerebral vessels. Multiaxial CT images of the neck were also perform ed following the intravenous administration of contrast to evaluate the major cervical vessels. 3D/IN P images were also obtained. Sagittal and coronal reformats were reviewed. A dose lowering technique was utilized adhering to the principles of ALARA. COMPARISON: Head CT 05/12/2024. FINDINGS: Redemonstration of the wedge-shaped hypodensity within the right cerebellar hemisphere consistent wit h an acute to subacute infarct Visualized intracranial internal carotid arteries, distal vertebral ar teries, and basilar artery are widely patent. There is no significant stenosis, occlusion, or aneurys m seen within the bilateral ACAs, MCAs, or supervisor winding department. The right posterior inferior cerebellar artery is on ly partially visualized and likely occluded. This likely accounts for the right cerebellar infarct.. The major dural venous sinuses are patent. The visualized aortic arch and normal in caliber. There is mild focal narrowing within the proximal left subclavian artery and mid right subclavian artery. Subtle irregularity within the mid bilateral internal carotid arteries and distal vertebral arteries suggesting the possibility of fibromuscular d ysplasia. There is associated moderate focal narrowing within the distal right vertebral artery at th e C2 level on image 219. This demonstrates up to 50% stenosis. However, no dissection identified. The left vertebral artery is dominant. Minimal calcified plaque within the right carotid bifurcation. Th ere is no significant stenosis, occlusion, or dissection identified within the bilateral common carot id, internal carotid, or left vertebral artery. IMPRESSION: 1. Redemonstration of the wedge-shaped hypodensity within the right cerebellar hemisphere consistent with an acute to subacute infarct. 2. The right posterior inferior cerebellar artery is only partially visualized and likely occluded. T his likely accounts for the right cerebellar infarct.. 3. Moderate focal narrowing within the distal right vertebral artery at the C2 level of approximately 50%. 4. Subtle irregularity within the mid bilateral internal carotid arteries and distal vertebral arteri es suggesting the possibility of fibromuscular dysplasia. ACT 112: Negative or not required by law. Electronically signed by: Syed Walden M.D. 05/12/2024 2:43 PM
--- NOTE | 2024-05-12 15:00 | Electrocardiogram Report ---
Test Reason : Blood Pressure : / mmHG Vent. Rate : 068 BPM Atrial Rate : 068 BPM P-R Int : 128 ms QRS Dur : 074 ms QT Int : 420 ms P-R-T Axes : 066 004 050 degrees QTc Int : 446 ms Normal sinus rhythm Nonspecific ST abnormality Abnormal ECG When compared with ECG of 19-SEP-2002 11:45, No significant change was found Confirmed by Nathan Hidalgo ([id number]) on 05/12/2024 3:00:44 PM Referred By: REFERRED SELF Confirmed By:Maxi Hidalgo
--- NOTE | 2024-05-12 15:47 | Magnetic Resonance Report ---
Brain MRI WITHOUT CONTRAST HISTORY: R sided cerebellar cva TECHNIQUE: Multiplanar multisequence MRI of the brain was performed without the use of contrast. COMPARISON STUDY: Head CT 05/12/2024. Brain MRI 08/27/2019. FINDINGS: Wedge-shaped focus of restricted diffusion within the right cerebellar hemisphere measuring up to 3.4 cm consistent with an acute infarct. This is located within the right posterior inferior c erebellar artery territory. No additional acute infarcts within the brain. Mild edema at the right ce rebral infarct without significant mass effect. Moderate atrophy and mild microvascular ischemic long ges are noted. The midline structures are intact. There is no mass, hematoma, or midline shift. The m ajor vascular flow-voids at the skull base are well-maintained. Old lacunar infarcts within the left cerebellar hemisphere. Prior bilateral lens replacement. The paranasal sinuses and mastoid air cells are clear. Punctate scattered foci of susceptibility artifact within the brain. This raises the possi bility of cerebral amyloid angiopathy. IMPRESSION: 1. Confirmation of the acute right cerebral infarct involving the posterior inferior cerebellar arter y territory. 2. Old small left cerebellar infarcts. 3. Atrophy and microvascular ischemic changes. 4. Punctate scattered foci of susceptibility artifact within the brain. This raises the possibility o f cerebral amyloid angiopathy. No acute intracranial hemorrhage. ACT 112: Negative or not required by law. Electronically signed by: Syed Walden M.D. 05/12/2024 3:45 PM
[2024-05-12] MEDS: CLOPIDOGREL BISULFATE 300 MG TAB PO STA (15:58)
[2024-05-12] MEDS ORDERED: LABETALOL HCL IV 5 MG/ML 20ML IV PRN (16:29)
--- NOTE | 2024-05-12 16:41 | Billing Data ---
Date of Service May 12, 2024 Coding Level of Care Code 22587 INT INP/OBS CARE
[2024-05-12] MEDS ORDERED: ONDANSETRON INJ 2 MG/ML 2 ML VIAL IV PRN (18:36)
[2024-05-12] MEDS ORDERED: POLYETHYLENE (MIRALAX) 17 GM PACK PO PRN (18:36)
[2024-05-12] MEDS ORDERED: PHARMACIST DISCHARGE MED REC CONSULT PRN (18:36)
[2024-05-12] MEDS: MEMANTINE HCL 10 MG TAB PO SCH (20:15)
[2024-05-12] MEDS: ATORVASTATIN 40 MG TAB PO SCH (20:16)
[2024-05-13] MEDS: LEVOTHYROXINE SODIUM 25 MCG TABLET PO SCH (06:31)
[2024-05-13 06:46] LABS: Basophils # (auto) 0.04 K/uL (0.00-0.20); Basophils % (auto) 0.5 %; Eosinophils # (auto) 0.12 K/uL (0.00-0.50); Eosinophils % (auto) 1.5 %; Hematocrit (blood only) 40.3 % (37.0-47.0); Hemoglobin 13.6 g/dl (12.0-16.0); Immature Granulocytes # (auto) 0.02 K/uL (0.01-0.20); Immature Granulocytes % (auto) 0.2 %; Lymphocytes % (auto) 18.1 %; Mean Corpuscular Hemoglobin 30.5 pg (25.0-34.0); Mean Corpuscular Hgb Conc 33.7 g/dL (32.0-36.0); Mean Corpuscular Volume 90.4 fL (80.0-100.0); Mean Platelet Volume 12.8 fL (9.4-12.4); Monocytes # (auto) 0.77 K/uL (0.11-0.59); Monocytes % (auto) 9.3 %; Neutrophils # (auto) 5.82 K/uL (1.40-6.50); Neutrophils % (auto) 70.4 %; Platelet Count 225 K/uL (130-400); RDW Coefficient of Variation 13.2 % (11.5-14.5); RDW Standard Deviation 44.1 fL (36.4-46.3); Red Blood Count 4.46 M/uL (4.20-5.40); White Blood Count 8.27 K/ul (4.8-10.8)
[2024-05-13 07:06] LABS: BUN Creatinine Ratio 16.3 (10-20); Calcium 9.2 mg/dl (8.6-10.3); Chol HDL Ratio 6.4 (0-5); Creatinine Clr Calc Pharmacy 29.8 ml/min; Est GFR (African American) 61.3 ml/min; Est GFR (Non-African American) 52.9 ml/min; Potassium 3.8 mmol/L (3.5-5.1)
[2024-05-13 08:43] LABS: Estimated Average Glucose 120 mg/dl; Hemoglobin A1C 5.8 % (4.5-5.6)
[2024-05-13] MEDS: CLOPIDOGREL BISULFATE 75 MG TAB PO SCH (08:51)
[2024-05-13] MEDS: CYANOCOBALAMIN (B-12) 500 MCG TABLET PO SCH (08:52)
[2024-05-13] MEDS: MIRTAZAPINE TAB 15 MG TAB PO SCH (08:52)
[2024-05-13] MEDS: CALCIUM CARBONATE 1250MG TAB PO SCH (08:52)
[2024-05-13] MEDS: DONEPEZIL HCL 10 MG TAB PO SCH (08:52)
--- NOTE | 2024-05-13 09:02 | Neurology Consultation ---
Date of Consultation May 13, 2024 Assessment & Plan (1) Cerebellar stroke: (2) Dementia: (3) Hypertension: (4) Hypothyroidism: Plan This patient suffered an acute right cerebellar hemispheric stroke on May 12, likely from right posterior inferior cerebral artery compromise (high-grade stenosis versus occlusion). Fortunately, the patient has a partial right PICA syndrome (Wallenberg syndrome). On examination she has some gait ataxia falling to the ipsilateral side and no limb ataxia. She may have some contralateral temperature sensation deficits. She has no brainstem symptoms including no nystagmus, Eren syndrome, right facial involvement or (as far as we can tell) taste issues. There is no weakness and she has no dysarthria, dysphonia (hoarseness), or dysphagia. Clinically she is stable. Being awake and alert today, without headache I am not concerned about cerebellar edema or hemorrhagic transformation The etiology of the stroke is likely thrombotic from the compromise of the right PICA. She has mild old small vessel ischemic disease on MRI in addition. Her risk factors for stroke included hypertension and dyslipidemia. She does not have diabetes and never was a cigarette smoker. 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 She is fairly stable on memantine and donepezil. She has a history of thyroidism Recommendations: 1. This patient probably should be on dual antiplatelet therapy for 3 weeks with 81 mg aspirin +75 mg clopidogrel, and then I would keep her on clopidogrel alone. 2. Agree with atorvastatin. Technically she would be a high-dose statin candidate. 3. Control blood pressure as you are doing, keeping the mean arterial pressure around 95 or so. 4. Physical, occupational, and speech therapy consults. Increase activity as able 5. Consider increasing levothyroxine and lieu of her elevated TSH. It is particularly pertinent to keep up patient with dementia in a euthyroid state as possible. 6. Consider Lyme antibody titers (has a history of Lyme disease) and vitamin D level 7. Can follow-up with the neurology PA as an outpatient and 3 to 4 weeks after discharge. Overall, I spent a total of 95 minutes with this case including review of nasra rds, review of MRI and CT films, direct evaluation patient at bedside, report generation, and discussion of the case with the patient and RN at bedside as well as Dr. Fernandez including differential diagnosis and treatment options. History of Present Illness Reason for Consultation: Patient is a 73-year-old who I was asked to see at the request of Dr. Nava regarding stroke Requesting Physician: Jason Nava DO Attending Physician: Lani Fernandez DO History of Present Illness This patient was first seen by [facility] neurology in November 2020 with a progressive history of memory loss. Dr. Clemons evaluated her and felt that she had mostly short-term issues and was likely dealing with an early senile dementia of the Alzheimer's type. MRI of the brain in 2018 showed mild atrophy and old small vessel ischemic disease. She scored 22 out of 30 points in the Mini-Mental status examination and donepezil was initiated. Over the next 2 years she was followed intermittently and was last seen in March 12 of this year by Dr. Clemons. At that time she was on memantine 10 mg twice a day and donepezil 10 mg once a day. She also has a history of B12 deficiency, hypothyroidism, dyslipidemia, and anxiety. On May 11, the patient apparently was fatigued with decreased appetite. On the morning of May 12, the patient got up and tried to walk after sitting on the couch and fell around 0930, apparently to the left. This was history noted in the chart from the patient's son. She had a second fall and then at 10 30-11 AM had a third fall was walking in fell to the left She arrived to the emergency room on May 12 at 1212 with a temperature 36.7, 63 and regular, respiratory rate 19, blood pressure 161/73, and O2 saturation 97%. Neurologic examination did not show focal findings but the gait disturbance was noted CBC and CHEM profile were largely unremarkable. Glucose was 122. B12 was normal and TSH was mildly elevated at 4.7. CT scan of the head showed hypodensity in the right cerebellar hemisphere suggesting stroke. CT angiography of the head and neck showed a probable occluded right posterior inferior cerebellar artery as well as a 50% stenosis in the right distal vertebral artery (C2 area). There may have been some fibromuscular dysplasia changes in the ICAs bilaterally. MRI of the brain revealed a right cerebellar hemispheric stroke. The midline and brainstem appeared spared. There was moderate generalized cerebral atrophy and mild old small vessel ischemic disease. I reviewed all these films. This morning, nursing reports no new issues or changes. The patient is eating and swallowing well and has no speech issues. The patient herself denies pain, headaches, numbness or tingling in the arms and legs, weakness, facial numbness, dizziness, nausea, double vision, or swallowing issues. Allergies Allergy/AdvReac Type Severity Reaction Status Date / Time clarithromycin AdvReac Intermediate HALLUCINATI Verified 03/12/24 08:35 ONS latex AdvReac Mild RASH IF Verified 03/12/24 08:35 LATEX GLOVES WORN FOR EXTENDED PERIOD OF TIME Home Medications Medication Instructions Recorded Confirmed Type calcium carbonate (Calcium 600) 600 mg PO QAM 05/13/22 05/12/24 History levothyroxine 25 mcg tablet 25 mcg PO DAILY #30 tabs 01/11/24 05/12/24 Rx mecobalamin (vitamin B12) 1,000 1,000 mcg PO DAILY #30 tabs 01/11/24 05/12/24 Rx mcg chewable tablet mirtazapine 7.5 mg tablet 7.5 mg PO DAILY #30 tabs 02/19/24 05/12/24 Rx donepezil 10 mg tablet 10 mg PO QAM 90 days #90 tabs 03/12/24 05/12/24 Rx memantine 10 mg tablet 10 mg PO BID 90 days #180 tabs 03/12/24 05/12/24 Rx Patient History Medical History Hx of fracture of foot (10/17/22) currently in cast on left foot Acute nondisplaced transverse fracture within the proximal shaft of the left fifth metatarsal consistent with a Taylor fracture. From fall. Saw orthopedics History of Lyme disease Osteoporosis Internal hemorrhoids Postmenopausal atrophic vaginitis Surgical History History of surgical procedure on eye proper using laser lt eye SLT History of History of colonoscopy S/P LEEP Family History Father Atherosclerotic vascular disease Mother Stroke Grandmother Family history of diabetes mellitus Other No family history of adverse response to anesthesia Denies family history of Ovarian cancer Prostate cancer Myocardial infarction Breast cancer Colorectal cancer Social History Smoking Status: Never smoker Second Hand Exposure: No; Do You Dip or Chew Tobacco: No; Hx Alcohol Use: No Hx Substance Use: No Preferred Language: Japanese Communication Ability: Impaired Communication Ability Comment: alzheimers Visual Impairment: Limited Hearing Ability: Normal Pole Inspector Required: No Beliefs That Will Affect Care: None Current Living Situation: Family Current Living Situation Comment: lives at home with son and sister current occupational status: retired How many Children do You have: 3 Feels Safe at Home: Yes Childhood Exposure to Second-Hand Smoke: Yes (father smoked in home ) caffeine: No Physical Activity Frequency: Daily Physical Activity Frequency Comment: walks outside Seatbelt Use: always Sunscreen Use: Yes Assistive Devices: Glasses Review of Systems Constitutional: no fever, no fatigue and no weakness Eyes: no diplopia, no eye pain and no worsening vision Ear, Nose, Mouth, Throat: no ear pain, no tinnitus, no hearing loss, no dizziness, no snoring, no hoarseness and no dysphagia Respiratory: no cough and no dyspnea Cardiovascular: no chest pain, no palpitations and no lightheadedness Gastrointestinal: no abdominal pain, no nausea and no vomiting Genitourinary: no dysuria, no urinary frequency and no urinary incontinence Musculoskeletal: no back pain, no neck pain, no radicular pain, no joint pain and no myalgia Integumentary: no rash and no lesions Neurologic: + gait abnormality and + memory loss; no localized weakness, no generalized weakness, no tingling, no numbness, no tremor(s), no abnormal movements, no headache(s), no abnormal speech and no confusion Psychiatric: no depression, no irritability, no anxiety, no difficulty concentrating, no confusion and no hallucinations Endocrine: no fatigue and no flushing Hematologic / Lymphatic: no easy bleeding and no easy bruising Allergy / Immunological: no urticaria and no problem reported Exam (Neuro) Physical Exam: The patient is right-handed. The patient is awake, alert, and attentive. Speech is normal without any aphasia or dysarthria. Her voice is not hoarse. Mood and affect are normal appropriate. She is very pleasant and cooperative. She has obvious memory problems and knew her name and the fact that she was in the hospital but did not know why she was in the hospital and could not remember the following of yesterday. She did not know her age or where she lived. She knew that she was employed in the past but could not give me any details regarding Pupils are 4 mm bilaterally and reactive to light. There was no meiosis. Extraocular eye muscles are intact without nystagmus. There is no nystagmus with lateral gaze sitting or standing either. Visual acuity and visual aly seem normal grossly to confrontation. There are no deficits to sensation in the face in all 3 distributions of the fifth cranial nerve bilaterally. Corneal reflexes are positive bilaterally. Facial strength and symmetry was normal bilaterally. Hearing seems intact grossly to voice and finger rub bilaterally. Palate moves well without asymmetry. There is normal sternocleidomastoid and trapezius strength bilaterally. Tongue is midline with good strength bilaterally. Neck has a full range of motion without discomfort. There are no cervical bruits bilaterally. There are no cranial or ocular bruits. Heart is without murmur. There is a regular rhythm and rate. Cervical, thoracic, and lumbar spine are nontender to palpation. Gait is moderately wide-based, with cautious gait especially with turns. With feet together, eyes open, she will fall to the right.. With outstretched arms there is no drift. There are no resting, postural, or action tremors. There is no ataxia with finger to nose testing. There is good facility in the hands. No other abnormal involuntary movements are noted. There is no ataxia with obvious nature with [id number] testing. Motor strength is 5/5 diffusely in the arms bilaterally including deltoids, biceps, triceps, brachioradialis, wrist flexors and extensors, residential mortgage underwriter, and intrinsic hand muscles. Motor strength is 5/5 diffusely in the legs bilaterally including hip flexors, quadriceps, hamstrings, gastrocnemius, tibialis anterior, tibialis posterior, and Peroneii muscles bilaterally. Toe extensors are normal and there is good bulk in the extensor digitorum brevis muscles bilaterally. The limbs have good tone without rigidity or spasticity. There is no atrophy noted in the muscles. Muscle bulk is normal, there is no tenderness to palpation, no myotonia to percussion, and no fasciculations seen. Sensory examination reveals a possible decrease in distinguishing warm versus cold temperature testing in the left arm and left leg. This was a little bit inconsistent however. She feels pin and touch equally well in all 4 limbs with no deficits. Reflexes are 2/4 in the biceps, triceps, brachioradialis, quadriceps, and Achi lles tendons bilaterally. Toes are downgoing with plantar stimulation bilaterally. Peripheral pulses are present and of normal quality distally in all 4 limbs. There is no peripheral edema noted in the limbs. Results & Data Vital Signs (Past 12 Hours) Vital Signs Temp Pulse Pulse Resp BP Pulse Ox O2 Del Method 05/13/24 07:56 36.4 C L 63 18 132/72 93 Room Air 05/13/24 05:33 60 05/13/24 02:00 37.0 C 69 16 124/74 95 Room Air 05/12/24 21:55 65 PG Care Time/CCT Total # of Minutes Spent Total Time Spent with Patient: Total time spent is greater than 50% in coordination of care (as documented) at patient's floor/unit and/or counseling patient: Coding Level of Care Code 52874 INT INP/OBS CARE MIN Diagnoses Cerebellar stroke I63.9 Moderate Alzheimer's dementia with anxiety, unspecified timing of dementia onset F03.90 Dementia type: unspecified type Hypertension I10 Hypothyroidism, unspecified type E03.9 Hypothyroidism type: unspecified Time Spent (min) 95 (2) Dementia Dementia type: unspecified type (4) Hypothyroidism Hypothyroidism type: unspecified Qualified Code(s): E03.9 - Hypothyroidism, unspecified
[2024-05-13] MEDS: PNEUMOCOCCAL VACCINE (PCV20) 20-VAL CONJ-DIP CRM/PF 0.5 ML SYR IM ONE (10:09)
--- NOTE | 2024-05-13 10:29 | Pharmacy Report ---
- Date of Service May 13, 2024 - Pharmacy CVA/TIA Medication Review Medications to Prevent Stroke handout has been added to the patients discharge packet. Antiplatelet(s) * Asa 81 mg + clopidogrel 75 mg daily x 3 weeks, then clopidogrel monotherapy Cholesterol * High intensity statin: atorvastatin 40 mg daily DVT Prophylaxis * SCD knee Therapeutic Anticoagulation * No history of Afib/Aflutter noted Type 2 Diabetes * Patient does not have T2DM
--- NOTE | 2024-05-13 11:12 | Hospitalist Progress Note ---
Date of Service May 13, 2024 Assessment & Plan (1) Cerebellar stroke: Plan: Right cerebellar infarct in the territory of Right PICA (posterior inferior cerebellar artery) - no additional acute infarcts within brain per radiologist read of brain MRI - likely occurred sometime in the morning on 05/12/24 - CT head, CTA head and neck, and MRI brain completed: results positive for acute right cerebral infarct involving PICA and old smaller left cerebellar infarcts. No mass, hematoma, or midline shift. Punctate scattered foci of susceptibility artifact within brain that raises suspicion for cerebral amyloid angiopathy - CXR: No acute processes PLAN: - started on Atorvastatin 40mg PO qAM, can potentially increase dose if tolerating well - Plavix 75mg PO qAM with Aspirin 81 mg PO qAM for 3 weeks of DAPT, and then will continue Plavix 75 mg as monotherapy w/o Aspirin - allowing for permissive hypertension up to 200/105, Labetalol 5mg IV q6h prn if pt exceeds threshold - daily EKGs along with telemetry - obtain echocardiogram to assess for septal defect which could have allowed embolus to travel from systemic circulation to the R PICA - continue to monitor vital signs - periodic assessments for alertness and orientation, speech, coordination, strength, and sensation - continue to monitor for mental status changes (2) Dyslipidemia: Plan: - will be started on Atorvastatin 40mg PO qAM as part of stroke protocol - Plavix 75mg PO qAM starting tomorrow morning - Lipid panel: TG 163, Cholesterol 237, LDL 167, VLDL 33 - Will consider increasing high intensity statin dose if patient is tolerating current dose without issue (3) Dementia: Plan: - periodic assessments for alertness and orientation, speech, coordination, strength, and sensation - continue to monitor for mental status changes - continue home medications: donepezil 10mg PO qAM and memantine 10mg PO BID - Mirtazapine 7.5 mg QD for recurrent night time awakenings, only occurs a few times a week compared to multiple times a night (4) Osteoporosis: Plan: continue on calcium carbonate 600mg PO qAM (5) Hypothyroidism: Plan: - last TSH: 4.705 (02/19/24) - ordered TSH reflex T4, to recheck levels, new level is 3.6 - Increased home levothyroxine medication dose from 25 mcg to 37.5 mcg Admission and Anticipated Discharge Date Admission Date: May 12, 2024 Supervising Physician Co-Signing Physician Notes I personally examined the patient and verified forde points of history and exam, discussed case, and agree with decision making and plan documented by Dr. Madera. Patient is a 73-year-old female with advanced dementia presenting with an acute right PICA stroke. Appreciate neurology's recommendations. Patient will be on DAPT for 3 weeks and then Plavix thereafter. Discussed this with patient and her family, children were at bedside, reviewed increased risk of bleeding. Patient agreed to rehabilitation. We discussed use of assistive device to support safe ambulation. Her family is concerned that she will not use a walker. They are considering long-term care placement. Patient appears comfortable, lungs clear b/l to auscultation, regular rate and rhythm, no acute distress. Agree with increase of levothyroxine and consideration of increasing intensity of statin. Migdalia Roach is a 73 y/o F wit a PmHx of hypothyroidism, hyperlipidemia, Alzheimer's dementia, and osteoporosis and was brought in by her son due to concerns about increased balance loss, and increased number of falls. The patient lives at home with son and sister, and on the day of admission 05/12 patient had 3 falls, 2 of which occurred after getting off the couch and taking 1 or 2 steps before falling back onto the couch. During the third fall the patient fell to her left and hit her left shoulder on a wooden cupboard but without any trauma or injury. The patient's son brought her into the ED due to the loss of balance, falls, and slurred and disoriented speech. In the ED patient had head CT, head and neck CTA, and brain MRI which showed acute right cerebellar wedge shaped PICA infarct and left cerebellar old infarcts. Today the patient is doing well with no acute complaints or acute concerns over the night. When asked about orientation she knows her date and name but does not know the current president or her location. Patient denies fevers, chills, nausea, vomiting, abdominal pain, chest pain, palpitations or tightness. Physical Exam Physical Exam: General: patient resting comfortably, NAD, non-toxic in appearance, answers questions appropriately. Skin: warm, dry, intact HEENT: NC/AT, anicteric sclera, conjunctiva without injection, moist mucus membranes. Heart: +S1/S2, regular, no m/r/g Lungs: equal air entry bilaterally, no rales/rhonchi/wheezes Abd: +BS, soft, NT/ND Ext: warm, no clubbing/cyanosis or edema Neuro: nonfocal, speech intact, no facial droop, moving all extremities. AxO2: patient is unsure of location she is in Results & Data Results & Data Vital Signs (Past 12 Hours) Vital Signs Temp Pulse Pulse Resp BP Pulse Ox O2 Del Method 05/13/24 07:56 36.4 C L 63 18 132/72 93 Room Air 05/13/24 05:33 60 05/13/24 02:00 37.0 C 69 16 124/74 95 Room Air Resident Activity Tracking Resident Involvement: Resident Care Provided Care Provided: Adult Hospital Medicine (3) Dementia Dementia behavioral or psychological symptom: unspecified whether behavioral, psychotic, or mood disturbance or anxiety Dementia severity: moderate Dementia type: unspecified type Qualified Code(s): F03.B0 - Unspecified dementia, moderate, without behavioral disturbance, psychotic disturbance, mood disturbance, and anxiety (4) Osteoporosis Osteoporosis type: age-related Presence of current pathological fracture: without current pathological fracture Qualified Code(s): M81.0 - Age-related osteoporosis without current pathological fracture (5) Hypothyroidism Hypothyroidism type: unspecified Qualified Code(s): E03.9 - Hypothyroidism, unspecified
[2024-05-13] MEDS: ASPIRIN 81 MG CHEW PO SCH (11:48)
[2024-05-13 12:51] LABS: Lyme Screen Rflx Confirmation Positive (Negative)
[2024-05-13 13:25] LABS: Lyme Ab IgG 2nd Tier Confirm Positive (Negative); Lyme Ab IgM 2nd Tier Confirm Negative (Negative)
[2024-05-13] MEDS: LACTATED RINGER'S 1,000 ML IV SCH (15:14)
--- NOTE | 2024-05-13 15:34 | XCELERA ---
[id number]
[2024-05-14 06:00] LABS: Basophils # (auto) 0.05 K/uL (0.00-0.20); Basophils % (auto) 0.6 %; Eosinophils # (auto) 0.22 K/uL (0.00-0.50); Eosinophils % (auto) 2.5 %; Hematocrit (blood only) 39.6 % (37.0-47.0); Hemoglobin 13.1 g/dl (12.0-16.0); Immature Granulocytes # (auto) 0.03 K/uL (0.01-0.20); Immature Granulocytes % (auto) 0.3 %; Lymphocytes # (auto) 1.63 K/uL (1.20-3.40); Lymphocytes % (auto) 18.8 %; Mean Corpuscular Hemoglobin 30.3 pg (25.0-34.0); Mean Corpuscular Hgb Conc 33.1 g/dL (32.0-36.0); Mean Corpuscular Volume 91.7 fL (80.0-100.0); Mean Platelet Volume 12.8 fL (9.4-12.4); Monocytes # (auto) 0.94 K/uL (0.11-0.59); Monocytes % (auto) 10.9 %; Neutrophils # (auto) 5.79 K/uL (1.40-6.50); Neutrophils % (auto) 66.9 %; Platelet Count 212 K/uL (130-400); RDW Coefficient of Variation 13.6 % (11.5-14.5); RDW Standard Deviation 46.2 fL (36.4-46.3); Red Blood Count 4.32 M/uL (4.20-5.40); White Blood Count 8.66 K/ul (4.8-10.8)
[2024-05-14] MEDS: LEVOTHYROXINE SODIUM 25 MCG TABLET PO SCH (06:11)
[2024-05-14 06:13] LABS: BUN Creatinine Ratio 27.2 (10-20); Creatinine Clr Calc Pharmacy 30.4 ml/min; Est GFR (Non-African American) 53.5 ml/min; Potassium 4.2 mmol/L (3.5-5.1)
--- NOTE | 2024-05-14 09:44 | Hospitalist Progress Note ---
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 No mass, hematoma, or midline shift. Punctate scattered foci of susceptibility artifact within brain that raises suspicion for cerebral amyloid angiopathy - CXR: No acute processes PLAN: - started on Atorvastatin 40mg PO qAM, can potentially increase dose if tolerating well - Plavix 75mg PO qAM with Aspirin 81 mg PO qAM for 3 weeks of DAPT, and then will continue Plavix 75 mg as monotherapy w/o Aspirin - allowing for permissive hypertension up to 200/105, Labetalol 5mg IV q6h prn if pt exceeds threshold - daily EKGs along with telemetry - Echocardiogram results: EF= 55-60%, mild aortic and tricuspid regurgitation and trace mitral regurgitation. Normal ventricles and atria with some proximal septal thickening. Cardiac function within normal limits for age. - continue to monitor vital signs - periodic assessments for alertness and orientation, speech, coordination, strength, and sensation - continue to monitor for mental status changes (2) Dyslipidemia: Plan: - Atorvastatin 40mg PO qAM as part of stroke protocol - Plavix 75mg PO qAM - Lipid panel: TG 163, Cholesterol 237, LDL 167, VLDL 33 - No issues with current statin dose, can transition to higher potency (3) Dementia: Plan: - periodic assessments for alertness and orientation, speech, coordination, strength, and sensation - continue to monitor for mental status changes - continue home medications: donepezil 10mg PO qAM and memantine 10mg PO BID - Mirtazapine 7.5 mg QD for recurrent night time awakenings, only occurs a few times a week compared to multiple times a night (4) Osteoporosis: Plan: - continue on calcium carbonate 600mg PO qAM - Patient vitamin D level was decreased to 22.5, supplementing with vitamin d3 125 mcg (5) Hypothyroidism: Plan: - last TSH: 4.705 (02/19/24) - Most current TSH: 3.6 (05/13/2024) - Tolerating new levothyroxine dose of 37.5 mcg well and without issue Admission and Anticipated Discharge Date Admission Date: May 12, 2024 Supervising Physician Co-Signing Physician Notes I personally examined the patient and verified forde points of history and exam, discussed case, and agree with decision making and plan documented by Dr. Madera. Patient is a 73-year-old female with advanced dementia presenting with an acute right PICA stroke, currently on DAPT, reviewed increased risk of bleeding, no concerns of bleeding since initiation. Discussed plans for rehabilitation discharge, waiting authorization for [facility], patient's son at bedside. Subjective Today Fiona Roach is doing well with no acute complaints or acute concerns over the night. When asked about orientation she knows her date and name but does not know her location or what she had for breakfast. Patient not able to answer some orientation questions, but is not concerned, confused, or agitated. Patient not concerned with discharge at this time, and is generally feeling comfortable and healthy. Patient denies fevers, chills, nausea, vomiting, abdominal pain, chest pain, palpitations or tightness. Physical Exam Physical Exam: General: patient resting comfortably, NAD, non-toxic in appearance, answers questions appropriately. Skin: warm, dry, intact HEENT: NC/AT, anicteric sclera, conjunctiva without injection, moist mucus membranes. Heart: +S1/S2, regular, no m/r/g Lungs: equal air entry bilaterally, no rales/rhonchi/wheezes Abd: +BS, soft, NT/ND Ext: warm, no clubbing/cyanosis or edema Neuro: nonfocal, speech intact, no facial droop, moving all extremities. AxO2: patient does not know her location Results & Data Results & Data Vital Signs (Past 12 Hours) Vital Signs Temp Pulse Pulse Resp BP Pulse Ox O2 Del Method 05/14/24 08:00 70 05/14/24 07:53 37.0 C 63 18 111/60 95 Room Air 05/14/24 02:19 36.6 C 86 18 128/66 94 Room Air 05/13/24 23:12 70 Resident Activity Tracking Resident Involvement: Resident Care Provided Care Provided: Adult Hospital Medicine (3) Dementia Dementia type: unspecified type Dementia severity: moderate Dementia behavioral or psychological symptom: unspecified whether behavioral, psychotic, or mood disturbance or anxiety Qualified Code(s): F03.B0 - Unspecified dementia, moderate, without behavioral disturbance, psychotic disturbance, mood disturbance, and anxiety (4) Osteoporosis Osteoporosis type: age-related Presence of current pathological fracture: without current pathological fracture Qualified Code(s): M81.0 - Age-related osteoporosis without current pathological fracture (5) Hypothyroidism Hypothyroidism type: unspecified Qualified Code(s): E03.9 - Hypothyroidism, unspecified
[2024-05-14] MEDS: CHOLECALCIFEROL 125 MCG (5,000 UNITS) TAB PO SCH (15:28)
[2024-05-14] MEDS: ACETAMINOPHEN 325 MG TAB PO PRN (20:02)
[2024-05-15 06:52] LABS: Basophils # (auto) 0.06 K/uL (0.00-0.20); Basophils % (auto) 0.7 %; Eosinophils # (auto) 0.26 K/uL (0.00-0.50); Eosinophils % (auto) 3.2 %; Hematocrit (blood only) 42.6 % (37.0-47.0); Hemoglobin 14.1 g/dl (12.0-16.0); Immature Granulocytes # (auto) 0.03 K/uL (0.01-0.20); Immature Granulocytes % (auto) 0.4 %; Lymphocytes # (auto) 1.52 K/uL (1.20-3.40); Lymphocytes % (auto) 18.9 %; Mean Corpuscular Hemoglobin 30.9 pg (25.0-34.0); Mean Corpuscular Hgb Conc 33.1 g/dL (32.0-36.0); Mean Corpuscular Volume 93.4 fL (80.0-100.0); Mean Platelet Volume 12.6 fL (9.4-12.4); Monocytes # (auto) 0.77 K/uL (0.11-0.59); Monocytes % (auto) 9.6 %; Neutrophils # (auto) 5.41 K/uL (1.40-6.50); Neutrophils % (auto) 67.2 %; Platelet Count 208 K/uL (130-400); RDW Coefficient of Variation 13.7 % (11.5-14.5); RDW Standard Deviation 46.5 fL (36.4-46.3); Red Blood Count 4.56 M/uL (4.20-5.40); White Blood Count 8.05 K/ul (4.8-10.8)
[2024-05-15 07:12] LABS: Creatinine Clr Calc Pharmacy 31.2 ml/min; Est GFR (African American) 64.3 ml/min; Est GFR (Non-African American) 55.5 ml/min; Potassium 4.2 mmol/L (3.5-5.1)
--- NOTE | 2024-05-15 11:02 | Hospitalist Progress Note ---
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 No mass, hematoma, or midline shift. Punctate scattered foci of susceptibility artifact within brain that raises suspicion for cerebral amyloid angiopathy - CXR: No acute processes PLAN: - started on Atorvastatin 40mg PO qAM, can potentially increase dose if tolerating well - Plavix 75mg PO qAM with Aspirin 81 mg PO qAM for 3 weeks of DAPT, and then will continue Plavix 75 mg as monotherapy w/o Aspirin approximately 06/03/24 - allowing for permissive hypertension up to 200/105, Labetalol 5mg IV q6h prn if pt exceeds threshold. BP has been wnl 130/75 today - daily EKGs along with telemetry - Echocardiogram results: EF= 55-60%, mild aortic and tricuspid regurgitation and trace mitral regurgitation. Normal ventricles and atria with some proximal septal thickening. Cardiac function within normal limits for age. - continue to monitor vital signs - periodic assessments for alertness and orientation, speech, coordination, strength, and sensation - continue to monitor for mental status changes (2) Dyslipidemia: Plan: - Atorvastatin 40mg PO qAM as part of stroke protocol - Plavix 75mg PO qAM - Lipid panel: TG 163, Cholesterol 237, LDL 167, VLDL 33 - No issues with current statin dose, can transition to higher potency (3) Dementia: Plan: - periodic assessments for alertness and orientation, speech, coordination, strength, and sensation - continue to monitor for mental status changes - continue home medications: donepezil 10mg PO qAM and memantine 10mg PO BID - Mirtazapine 7.5 mg QD for recurrent night time awakenings, only occurs a few times a week compared to multiple times a night (4) Osteoporosis: Plan: - continue on calcium carbonate 600mg PO qAM - Patient vitamin D level was decreased to 22.5, supplementing with vitamin d3 125 mcg (5) Hypothyroidism: Plan: - last TSH: 4.705 (02/19/24) - Most current TSH: 3.6 (05/13/2024) - Tolerating new levothyroxine dose of 37.5 mcg well and without issue Admission and Anticipated Discharge Date Admission Date: May 12, 2024 Supervising Physician Co-Signing Physician Notes I personally examined the patient and verified forde points of history and exam, discussed case, and agree with decision making and plan documented by Dr. Madera. Patient is a 73-year-old female with advanced dementia presenting with an acute right PICA stroke, currently on DAPT. Unfortunately, rehabilitation coverage denied by insurance with [id number], family appealing. Subjective Fiona Roach is doing well with no acute complaints concerns over the night. Today she is alert and oriented and able to answer orientation questions correctly other than her location. Patient reports that she has been able to ambulate without pain or difficulty and today is not confused, or agitated. Patient not concerned with discharge at this time, and is generally feeling comfortable and healthy. Patient denies fevers, chills, nausea, vomiting, abdominal pain, chest pain, palpitations or tightness. Patient has been assessed by physical therapy and is awaiting dispute coordinator placement after discharge. Physical Exam Physical Exam: General: patient resting comfortably, NAD, non-toxic in appearance, answers questions appropriately. Skin: warm, dry, intact HEENT: NC/AT, anicteric sclera, conjunctiva without injection, moist mucus membranes. Heart: +S1/S2, regular, no m/r/g Lungs: equal air entry bilaterally, no rales/rhonchi/wheezes Abd: +BS, soft, NT/ND Ext: warm, no clubbing/cyanosis or edema Neuro: nonfocal, speech intact, no facial droop, moving all extremities. A&Ox2. Results & Data Results & Data Vital Signs (Past 12 Hours) Vital Signs Temp Pulse Pulse Resp BP Pulse Ox O2 Del Method 05/15/24 07:48 36.6 C 67 18 130/75 97 Room Air 05/15/24 05:21 36.6 C 67 16 109/75 97 Room Air 05/14/24 23:00 66 Resident Activity Tracking Resident Involvement: Resident Care Provided Care Provided: Adult Hospital Medicine (3) Dementia Dementia behavioral or psychological symptom: unspecified whether behavioral, psychotic, or mood disturbance or anxiety Dementia severity: moderate Dementia type: unspecified type Qualified Code(s): F03.B0 - Unspecified dementia, moderate, without behavioral disturbance, psychotic disturbance, mood disturbance, and anxiety (4) Osteoporosis Osteoporosis type: age-related Presence of current pathological fracture: without current pathological fracture Qualified Code(s): M81.0 - Age-related osteoporosis without current pathological fracture (5) Hypothyroidism Hypothyroidism type: unspecified Qualified Code(s): E03.9 - Hypothyroidism, unspecified
--- NOTE | 2024-05-16 15:04 | Hospitalist Progress Note ---
Date of Service May 16, 2024 Assessment & Plan (1) Cerebellar stroke: Plan: Right cerebellar infarct in the territory of Right PICA (posterior inferior cerebellar artery) - no additional acute infarcts within brain per radiologist read of brain MRI - likely occurred sometime in the morning on 05/12/24 - CT head, CTA head and neck, and MRI brain completed: results positive for acute right cerebral infarct involving PICA and old smaller left cerebellar infarcts. No mass, hematoma, or midline shift. Punctate scattered foci of susceptibility artifact within brain that raises suspicion for cerebral amyloid angiopathy - CXR: No acute processes PLAN: - started on Atorvastatin 40mg PO qAM, can potentially increase dose if tolerating well - Plavix 75mg PO qAM with Aspirin 81 mg PO qAM for 3 weeks of DAPT, and then will continue Plavix 75 mg as monotherapy w/o Aspirin approximately 06/03/24 - allowing for permissive hypertension up to 200/105, Labetalol 5mg IV q6h prn if pt exceeds threshold. BP has been wnl 130/75 today - daily EKGs along with telemetry - Echocardiogram results: EF= 55-60%, mild aortic and tricuspid regurgitation and trace mitral regurgitation. Normal ventricles and atria with some proximal septal thickening. Cardiac function within normal limits for age. - continue to monitor vital signs - periodic assessments for alertness and orientation, speech, coordination, strength, and sensation - continue to monitor for mental status changes (2) Dyslipidemia: Plan: - Atorvastatin 40mg PO qAM as part of stroke protocol - Plavix 75mg PO qAM - Lipid panel: TG 163, Cholesterol 237, LDL 167, VLDL 33 - No issues with current statin dose, can transition to higher potency (3) Dementia: Plan: - periodic assessments for alertness and orientation, speech, coordination, strength, and sensation - continue to monitor for mental status changes - continue home medications: donepezil 10mg PO qAM and memantine 10mg PO BID - Mirtazapine 7.5 mg QD for recurrent night time awakenings, only occurs a few times a week compared to multiple times a night (4) Osteoporosis: Plan: - continue on calcium carbonate 600mg PO qAM - Patient vitamin D level was decreased to 22.5, supplementing with vitamin d3 125 mcg (5) Hypothyroidism: Plan: - last TSH: 4.705 (02/19/24) - Most current TSH: 3.6 (05/13/2024) - Tolerating new levothyroxine dose of 37.5 mcg well and without issue Admission and Anticipated Discharge Date Admission Date: May 12, 2024 Supervising Physician Co-Signing Physician Notes I personally examined the patient and verified forde points of history and exam, discussed case, and agree with decision making and plan documented by Dr. Madera. Patient is a 73-year-old female with advanced dementia presenting with an acute right PICA stroke, currently on DAPT, tolerating well. Rehabilitation coverage at [facility] denied by insurance with [id number], patient's son Mark working on appeal at present with Brad. There is concern about patient's ambulatory functioning, especially in setting of DAPT, for when she is living at home. Thankfully patient's sister will be full-time caregiver for patient. Physical therapy saw patient again today with recommendations of acute rehab due to unsteadiness of gait and concerns of dementia interfering with her consistent use of an assistive device. Subjective Fiona Roach is doing well with no acute complaints concerns over the night. Today she is less alert and oriented is unable to answer any orientation questions other than her date. Patient reports that she has been able to ambulate without pain or difficulty and today is not confused, or agitated. Patient not concerned with discharge at this time, and is generally feeling comfortable and healthy. Patient was seen along side son today and her case was discussed. The patient's was declined placement into [facility] rehabilitation facility after the peer to peer process was completed. The patients son was working on an appeal process to help transition the patient into a rehabilitation facility, as the patient was able to perform most ADLs prior to her stroke. Patient denies fevers, chills, nausea, vomiting, abdominal pain, chest pain, palpitations or tightness. 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 Physical Exam Physical Exam: General: patient resting comfortably, NAD, non-toxic in appearance, answers questions appropriately. Skin: warm, dry, intact HEENT: NC/AT, anicteric sclera, conjunctiva without injection, moist mucus membranes. Heart: +S1/S2, regular, no m/r/g Lungs: equal air entry bilaterally, no rales/rhonchi/wheezes Abd: +BS, soft, NT/ND Ext: warm, no clubbing/cyanosis or edema Neuro: nonfocal, speech intact, no facial droop, moving all extremities. A&Ox2. Results & Data Results & Data Vital Signs (Past 12 Hours) Vital Signs Temp Pulse Pulse Resp BP Pulse Ox O2 Del Method 05/16/24 11:07 36.5 C 73 18 111/71 98 Room Air 05/16/24 07:47 36.5 C 67 18 163/77 H 98 Room Air 05/16/24 07:30 64 05/16/24 04:05 152/74 H 05/16/24 03:49 36.6 C 68 16 169/88 H 97 Room Air Resident Activity Tracking Resident Involvement: Resident Care Provided Care Provided: Adult Hospital Medicine (3) Dementia Dementia behavioral or psychological symptom: unspecified whether behavioral, psychotic, or mood disturbance or anxiety Dementia severity: moderate Dementia type: unspecified type Qualified Code(s): F03.B0 - Unspecified dementia, moderate, without behavioral disturbance, psychotic disturbance, mood disturbance, and anxiety (4) Osteoporosis Osteoporosis type: age-related Presence of current pathological fracture: without current pathological fracture Qualified Code(s): M81.0 - Age-related osteoporosis without current pathological fracture (5) Hypothyroidism Hypothyroidism type: unspecified Qualified Code(s): E03.9 - Hypothyroidism, unspecified
--- NOTE | 2024-05-17 06:53 | Hospitalist Progress Note ---
Date of Service May 17, 2024 Assessment & Plan (1) Cerebellar stroke: (2) Dyslipidemia: (3) Dementia: (4) Osteoporosis: (5) Hypothyroidism: Plan 1) Cerebellar stroke Right cerebellar infarct in the territory of Right PICA (posterior inferior cerebellar artery) - no additional acute infarcts within brain per radiologist read of brain MRI - likely occurred sometime in the morning on 05/12/24 - CT head, CTA head and neck, and MRI brain completed: results positive for acute right infarct involving PICA and old smaller left cerebellar infarcts. No mass, hematoma, or midline shift. Punctate scattered foci of susceptibility artifact within brain that raises suspicion for cerebral amyloid angiopathy - CXR: No acute processes PLAN: - started on Atorvastatin 40mg PO qAM, can potentially increase dose if tolerating well - Plavix 75mg PO qAM with Aspirin 81 mg PO qAM for 3 weeks of DAPT, and then will continue Plavix 75 mg as monotherapy w/o Aspirin approximately 06/03/24 - allowed for permissive hypertension up to 200/105 for first 24-48 hrs - Echocardiogram results: EF= 55-60%, mild aortic and tricuspid regurgitation and trace mitral regurgitation. Normal ventricles and atria with some proximal septal thickening. Cardiac function within normal limits for age. - continue to monitor vital signs, mental status changes (AAO x 1) - patient awaiting placement, w/ family appeal for [facility] made to insurer ([employer]) after patient denied rehab and/or SNF 2) Dyslipidemia - Atorvastatin 40mg PO qAM as part of stroke protocol - Plavix 75mg PO qAM - Lipid panel: TChol 237, LDL 167, HDL 37, VLDL 33, TG 163 - No issues with current statin dose, can transition to higher potency 3) Dementia - periodic assessments for alertness and orientation, speech, coordination, strength, and sensation - continue to monitor for mental status changes - continue home medications: donepezil 10mg PO qAM and memantine 10mg PO BID - Mirtazapine 7.5 mg QD for recurrent night time awakenings, only occurs a few times a week compared to multiple times a night 4) Osteoporosis - continue on calcium carbonate 600mg PO qAM - Patient vitamin D level was decreased to 22.5, supplementing with vitamin d3 125 mcg 5) Hypothyroidism - last TSH: 4.705 (02/19/24) - Most current TSH: 3.6 (05/13/2024) - Tolerating new levothyroxine dose of 37.5 mcg well and without issue Code status: DNR/DNI Disposition: PCU-Tele VTE Prophylaxis: SCD's (to the knee) FENGI: [facility], Easy to chew Admission and Anticipated Discharge Date Admission Date: May 12, 2024 Supervising Physician Co-Signing Physician Notes Attending Physician Supervision Note: I independently interviewed and examined the patient and verified the forde history and physical, reviewed labs and image studies and agree with findings and care plan noted above. Acute Right Cerebellar (PICA) stroke in setting of advanced dementia - -continue DAPT, statin Rehabilitation coverage at [facility] denied by insurance with [id number], patient's son Mark working on appeal at present with Brad. Case management following. Subjective Fiona Roach is doing well with no acute complaints concerns over the night. Today she is less alert and oriented is unable to answer any orientation questions other than her date. Patient reports that she has been able to ambulate without pain or difficulty and today is not confused, or agitated. Patient not concerned with discharge at this time, and is generally feeling comfortable and healthy. Patient was seen along side son today and her case was discussed. The patient's was declined placement into [facility] rehabilitation facility after the peer to peer process was completed. The patients son was working on an appeal process to help transition the patient into a rehabilitation facility, as the patient was able to perform most ADLs prior to her stroke. Patient denies fevers, chills, nausea, vomiting, abdominal pain, chest pain, palpitations or tightness. Patient has been assessed by physical therapy and is awaiting retirement placement and rehabilitation after discharge. Review of Systems Constitutional: no fever and no chills Respiratory: no cough and no dyspnea Cardiovascular: no chest pain and no palpitations Gastrointestinal: no abdominal pain, no nausea, no vomiting, no constipation and no diarrhea/loose stools Genitourinary: no dysuria and no urinary frequency Neurologic: + abnormal speech (word finding difficul ty) and + confusion Psychiatric: no abnormal sleep pattern, no irritability, no anxiety, no difficulty concentrating and no confusion All of the above per the patient Physical Exam Constitutional: WD/WN, vitals as above Respiratory: normal respiratory effort, lungs clear to auscultation Cardiovascular: RRR, no murmur, no edema Extremities: normal capillary refill; no calf tenderness and no pedal edema Gastrointestinal (Abdomen): normal bowel sounds, soft, nontender, no hepatosplenomegaly Neurologic: Speech / Cognition: + anomia (word finding difficulty) Cranial Nerves: PERRL, EOM intact bilaterally, normal facial strength and able to elevate shoulders bilaterally Coordination: + abnormal [id number] test (intact but very slow), + abnormal [id number] test and + abnormal rapid alternating movements Psychiatric: Orientation: alert, oriented to person and cooperative; + not oriented to place and + not oriented to time Results & Data Results & Data Vital Signs (Past 12 Hours) Vital Signs Temp Pulse Pulse Resp BP Pulse Ox O2 Del Method 05/17/24 05:40 36.8 C 67 16 144/88 H 96 Room Air 05/16/24 22:37 36.7 C 71 16 167/87 H 95 Room Air 05/16/24 22:08 76 05/16/24 19:05 37.0 C 76 16 155/82 H 99 Room Air Resident Activity Tracking Resident Involvement: Resident Care Provided Care Provided: Adult Hospital Medicine (3) Dementia Dementia behavioral or psychological symptom: unspecified whether behavioral, psychotic, or mood disturbance or anxiety Dementia severity: moderate Dementia type: unspecified type Qualified Code(s): F03.B0 - Unspecified dementia, moderate, without behavioral disturbance, psychotic disturbance, mood disturbance, and anxiety (4) Osteoporosis Osteoporosis type: age-related Presence of current pathological fracture: without current pathological fracture Qualified Code(s): M81.0 - Age-related osteoporosis without current pathological fracture (5) Hypothyroidism Hypothyroidism type: unspecified Qualified Code(s): E03.9 - Hypothyroidism, unspecified
--- NOTE | 2024-05-18 13:30 | Hospitalist Progress Note ---
Date of Service May 18, 2024 Assessment & Plan (1) Cerebellar stroke: (2) Dyslipidemia: (3) Dementia: (4) Osteoporosis: (5) Hypothyroidism: Plan: (1) Cerebellar Stroke - Right cerebellar infarct in the territory of Right PICA, likely morning of 05/12 - CT head, CTA head and neck, and MRI brain completed: acute right cerebellar infarct involving PICA and old smaller left cerebellar infarcts. Findings suggestive of cerebral amyloid angiopathy - Echo: EF= 55-60%, - started Atorvastatin 40mg PO qAM - Plavix 75mg PO qAM with Aspirin 81 mg PO qAM for 3 weeks (till 06/03) of DAPT, and then will continue Plavix 75 mg as monotherapy w/o Aspirin. (2) Dyslipidemia: Plan: - Lipid panel: TG 163, Cholesterol 237, LDL 167, VLDL 33 - Atorvastatin 40mg PO qAM as part of stroke protocol - Tolerating current dose. Will increase further on discharge. (3) Dementia: Plan: - periodic assessments for alertness and orientation, speech, coordination, strength, and sensation - continue home meds: donepezil 10mg PO qAM and memantine 10mg PO BID - Mirtazapine 7.5 mg QD for recurrent night time awakenings. (4) Osteoporosis: Plan: - continue on calcium carbonate 600mg PO qAM - Patient vitamin D level was decreased to 22.5, now normal after supplementing with vitamin d3 125 mcg (5) Hypothyroidism: Plan: - Most current TSH: 3.6 (05/13/2024) - Tolerating new levothyroxine dose of 37.5 mcg well and without issue Code status: DNR/DNI Disposition: patient awaiting placement, w/ family appeal for [facility] made to insurer ([employer]) after patient denied rehab and/or SNF VTE Prophylaxis: SCD's (to the knee) FENGI: Heart Health, Easy to chew Admission and Anticipated Discharge Date Admission Date: May 12, 2024 Supervising Physician Co-Signing Physician Notes Attending Physician Supervision Note: I independently interviewed and examined the patient and verified the forde history and physical, reviewed labs and image studies and agree with findings and care plan noted above. Acute Right Cerebellar (PICA) stroke in setting of advanced dementia - -continue DAPT, statin -Transfer to medical floor. Rehabilitation coverage at [facility] denied by insurance with [id number], ayad mckee's son Mark working on appeal at present with Brad. Case management following. Subjective Fiona Roach is doing well with no acute complaints concerns over the night. Today during orientation questioning she remembered her name and date of but was unable to convey her age, location, or what she had for breakfast. Patient reports that she has been able to ambulate without pain or difficulty and today is not confused, or agitated. Patient not concerned with discharge at this time, and is generally feeling comfortable and healthy. The patient is currently waiting for placement into a rehab facility. She was declined rehab from [facility] through her insurance and is currently waiting for placement while her family navigates the appeal process. Today the patient denies fevers, chills, nausea, vomiting, abdominal pain, chest pain, palpitations or tightness. Patient has been assessed by PT/OT. Physical Exam Physical Exam: General: patient resting comfortably, NAD, non-toxic in appearance, answers questions appropriately. Skin: warm, dry, intact HEENT: NC/AT, anicteric sclera, conjunctiva without injection, moist mucus membranes. Heart: +S1/S2, regular, no m/r/g Lungs: equal air entry bilaterally, no rales/rhonchi/wheezes Abd: +BS, soft, NT/ND Ext: warm, no clubbing/cyanosis or edema Neuro: nonfocal, speech intact, no facial droop, moving all extremities. A&Ox2. Results & Data Results & Data Vital Signs (Past 12 Hours) Vital Signs Temp Pulse Pulse Resp BP BP Pulse Ox 05/18/24 11:46 36.7 C 67 16 151/87 H 98 05/18/24 07:48 36.6 C 77 16 137/67 98 05/18/24 04:16 36.8 C 76 16 137/70 98 O2 Del Method 05/18/24 11:46 Room Air 05/18/24 07:48 Room Air 05/18/24 04:16 Room Air Resident Activity Tracking Resident Involvement: Resident Care Provided Care Provided: Adult Hospital Medicine (3) Dementia Dementia behavioral or psychological symptom: unspecified whether behavioral, psychotic, or mood disturbance or anxiety Dementia severity: moderate Dementia type: unspecified type Qualified Code(s): F03.B0 - Unspecified dementia, moderate, without behavioral disturbance, psychotic disturbance, mood disturbance, and anxiety (4) Osteoporosis Osteoporosis type: age-related Presence of current pathological fracture: without current pathological fracture Qualified Code(s): M81.0 - Age-related osteoporosis without current pathological fracture (5) Hypothyroidism Hypothyroidism type: unspecified Qualified Code(s): E03.9 - Hypothyroidism, unspecified
[2024-05-18 23:26] VITALS: TEMP 98.1
[2024-05-19 07:11] VITALS: BP 115/73; RESP 14; O2SAT 95
--- NOTE | 2024-05-19 12:53 | Hospitalist Progress Note ---
Date of Service May 19, 2024 Assessment & Plan (1) Cerebellar stroke: Plan: Right cerebellar infarct in the territory of Right PICA, likely morning of 05/12 - CT head, CTA head and neck, and MRI brain completed: results positive for acute right cerebellar infarct involving PICA and old smaller left cerebellar infarcts. Findings raise suspicion for cerebral amyloid angiopathy - Echo: EF= 55-60% - started on Atorvastatin 40mg PO qAM - Plavix 75mg PO qAM with Aspirin 81 mg PO qAM for 3 weeks of DAPT (till 06/03), and then will continue Plavix 75 mg as monotherapy w/o Aspirin (2) Dyslipidemia: Plan: - Lipid panel: TG 163, Cholesterol 237, LDL 167, VLDL 33 - Atorvastatin 40mg PO qAM as part of stroke protocol - Tolerating current dose, will increase further on discharge (3) Dementia: Plan: - periodic assessments for alertness and orientation, speech, coordination, strength, and sensation - continue home medications: donepezil 10mg PO qAM and memantine 10mg PO BID - Mirtazapine 7.5 mg QD for recurrent night time awakenings (4) Osteoporosis: Plan: - continue on calcium carbonate 600mg PO qAM - Patient vitamin D level was decreased to 22.5, now normal after supplementing with vitamin d3 125 mcg (5) Hypothyroidism: Plan: - Most current TSH: 3.6 (05/13/2024) - Tolerating new levothyroxine dose of 37.5 mcg well and without issue Plan Code status: DNR/DNI Disposition: PCU-Tele VTE Prophylaxis: SCD's (to the knee) FENGI: Heart Health, Easy to chew Admission and Anticipated Discharge Date Admission Date: May 12, 2024 Migdalia Roach is doing well with no acute complaints concerns over the night. Patient reports that she has been able to ambulate without pain or difficulty and today is not confused, or agitated. Patient not concerned with discharge at this time, and is generally feeling comfortable and healthy. The patient is currently waiting for placement into a rehab facility. She was declined rehab from [facility] through her [employer] insurance and is currently waiting for placement while her family navigates the appeal process. Today the patient denies fevers, chills, nausea, vomiting, abdominal pain, chest pain, palpitations or tightness. Patient has been assessed by PT/OT. Physical Exam Physical Exam: General: patient resting comfortably, NAD, non-toxic in appearance, answers questions appropriately. Skin: warm, dry, intact HEENT: NC/AT, anicteric sclera, conjunctiva without injection, moist mucus membranes. Heart: +S1/S2, regular, no m/r/g Lungs: equal air entry bilaterally, no rales/rhonchi/wheezes Abd: +BS, soft, NT/ND Ext: warm, no clubbing/cyanosis or edema Neuro: nonfocal, speech intact, no facial droop, moving all extremities. A&Ox2. Results & Data Results & Data Vital Signs (Past 12 Hours) Vital Signs Temp Pulse Resp BP Pulse Ox O2 Del Method 05/19/24 07:09 36.7 C 85 14 115/73 95 Room Air Resident Activity Tracking Resident Involvement: Resident Care Provided Care Provided: Adult Hospital Medicine (3) Dementia Dementia behavioral or psychological symptom: unspecified whether behavioral, psychotic, or mood disturbance or anxiety Dementia severity: moderate Dementia type: unspecified type Qualified Code(s): F03.B0 - Unspecified dementia, moderate, without behavioral disturbance, psychotic disturbance, mood disturbance, and anxiety (4) Osteoporosis Osteoporosis type: age-related Presence of current pathological fracture: without current pathological fracture Qualified Code(s): M81.0 - Age-related osteoporosis without current pathological fracture (5) Hypothyroidism Hypothyroidism type: unspecified Qualified Code(s): E03.9 - Hypothyroidism, unspecified
--- NOTE | 2024-05-19 16:14 | Discharge Summary ---
Date of Service May 19, 2024 Admission HPI Per Admitting Provider Fiona is a 73yo female with PMHx hypothyroidism, vitamin B12 deficiency, dyslipidemia, Alzheimer's dementia on memantine and donepezil, osteoporosis, and anxiety BIB son for concerns about increasing frequency of falls. No history of prior stroke, not previously on statin. Patient lives at home with son and sister, son endorses that patient had very little energy and appetite yesterday (05/11/24) upon waking up, compared to the day before (05/10/24) in which she had good energy and appetite, son denies any symptoms of nausea, vomiting, headache, dizziness, weakness, numbness or tingling. Today, patient had 3 falls: 1. getting up from sitting on couch, patient took a step or 2 before falling to her left side back onto the couch around 9:30am 2. similar to first 3. in kitchen, patient was walking and fell to her left and hit her left shoulder on wood cupboard around 10:30-11am No head trauma with any of the falls, no nausea, vomiting, headache, weakness, numbness or tingling was found at the time, but son endorses pt was wobbly on her feet as he tried to support her. Due to the falls and lack of balance, son decided to bring her to ED. En route to [facility] ED, son endorses patient had slurred speech and would repeat herself a few times such as things she saw on road signs. In the ED: patient in room with her son and son's partner, patient alert and oriented to person, appearing in pleasant mood with good eye contact and not appearing in acute distress. Patient not endorsing any pain, nausea, dizziness, headache, weakness, numbness, or tingling at time of interview, around 4pm. Son was able to relay the above information about yesterday and today's events. Patient, however, did not recall having any falls earlier today, nor did she recall being more tired and having less appetite than usual yesterday. 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 Skin: warm, dry, intact HEENT: NC/AT, anicteric sclera, conjunctiva without injection, moist mucus membranes. Heart: +S1/S2, regular, no m/r/g Lungs: equal air entry bilaterally, no rales/rhonchi/wheezes Abd: +BS, soft, NT/ND Ext: warm, no clubbing/cyanosis or edema Neuro: nonfocal, speech intact, no facial droop, moving all extremities. Discharge Data Allergies Allergy/AdvReac Type Severity Reaction Status Date / Time clarithromycin AdvReac Intermediate HALLUCINATI Verified 03/12/24 08:35 ONS latex AdvReac Mild RASH IF Verified 03/12/24 08:35 LATEX GLOVES WORN FOR EXTENDED PERIOD OF TIME lactose AdvReac Unknown Gastrointestinal Verified 05/13/24 18:21 Upset Consultations 05/12/24 13:43 ED Decision to Admit Stat 05/13/24 09:00 Consult Neurology Routine Ordered Studies 05/12/24 12:36 CT head/brain wo con Stat 05/12/24 13:42 CT angio head w con Stat CT angio neck with con Stat 05/12/24 13:43 MR brain wo con Routine Laboratory Results WBC 8.05 K/ul (4.8-10.8) 05/15/24 06:09 RBC 4.56 M/uL (4.20-5.40) 05/15/24 06:09 Hgb 14.1 g/dl (12.0-16.0) 05/15/24 06:09 POC Hgb 15.3 g/dl (12.0-16.0) 05/12/24 12:32 Hct 42.6 % (37.0-47.0) 05/15/24 06:09 POC Hct 45 % (37-47) 05/12/24 12:32 MCV 93.4 fL (80.0-100.0) 05/15/24 06:09 MCH 30.9 pg (25.0-34.0) 05/15/24 06:09 MCHC 33.1 g/dL (32.0-36.0) 05/15/24 06:09 RDW Std Deviation 46.5 fL (36.4-46.3) H 05/15/24 06:09 RDW Coeff of Arlyn 13.7 % (11.5-14.5) 05/15/24 06:09 Plt Count 208 K/uL (130-400) 05/15/24 06:09 MPV 12.6 fL (9.4-12.4) H 05/15/24 06:09 Immature Gran % (Auto) 0.4 % 05/15/24 06:09 Neut % (Auto) 67.2 % 05/15/24 06:09 Lymph % (Auto) 18.9 % 05/15/24 06:09 Hamblen % (Auto) 9.6 % 05/15/24 06:09 Eos % (Auto) 3.2 % 05/15/24 06:09 Baso % (Auto) 0.7 % 05/15/24 06:09 Neut # (Auto) 5.41 K/uL (1.40-6.50) 05/15/24 06:09 Lymph # (Auto) 1.52 K/uL (1.20-3.40) 05/15/24 06:09 Hamblen # (Auto) 0.77 K/uL (0.11-0.59) H 05/15/24 06:09 Eos # (Auto) 0.26 K/uL (0.00-0.50) 05/15/24 06:09 Baso # (Auto) 0.06 K/uL (0.00-0.20) 05/15/24 06:09 Immature Gran # (Auto) 0.03 K/uL (0.01-0.20) 05/15/24 06:09 PT 10.9 Seconds (9.0-12.0) 05/12/24 12:20 INR 1.0 (0.9-1.1) 05/12/24 12:20 APTT 23 Seconds (21-31) 05/12/24 12:20 PTT Ratio 0.9 05/12/24 12:20 POC Sodium 138 mmol/L (135-144) 05/12/24 12:32 Sodium 140 mmol/L (136-145) 05/15/24 06:09 POC Potassium 4.1 mmol/L (3.3-5.0) 05/12/24 12:32 Potassium 4.2 mmol/L (3.5-5.1) 05/15/24 06:09 POC Chloride 103 mmol/L (101-112) 05/12/24 12:32 Chloride 106 mmol/L (98-107) 05/15/24 06:09 Carbon Dioxide 29 mmol/L (21-32) 05/15/24 06:09 POC Total CO2 24 mmol/L (24-31) 05/12/24 12:32 Anion Gap 5 (3-11) 05/15/24 06:09 POC Anion Gap 16.0 mmol/L (16-25) 05/12/24 12:32 POC BUN 18 mg/dl (7-18) 05/12/24 12:32 BUN 20 mg/dl (6-23) 05/15/24 06:09 Creatinine 1.00 mg/dl (0.6-1.2) 05/15/24 06:09 POC Creatinine 1.1 mg/dl (0.6-1.3) 05/12/24 12:32 Est Cr Clr Drug Dosing 31.2 ml/min 05/15/24 06:09 Est GFR ( Amer) 64.3 ml/min 05/15/24 06:09 Est GFR (Non-Af Amer) 55.5 ml/min 05/15/24 06:09 BUN/Creatinine Ratio 20.0 (10-20) 05/15/24 06:09 Glucose 84 mg/dl (70-99(Fasting)) 05/15/24 06:09 POC Glucose (other) 127 mg/dl (70-99) H 05/12/24 12:32 Estimat Average Glucose 120 mg/dl 05/13/24 05:54 Hemoglobin A1c 5.8 % (4.5-5.6) H 05/13/24 05:54 Calcium 9.0 mg/dl (8.6-10.3) 05/15/24 06:09 POC Ioniz Calcium Destiny 1.13 mmol/l (1.12-1.32) 05/12/24 12:32 Magnesium 2.4 mg/dl (1.7-2.4) 05/12/24 12:20 Total Bilirubin 0.3 mg/dl (0.2-1.0) 05/12/24 12:20 AST 17 U/L (13-39) 05/12/24 12:20 ALT 21 U/L (7-52) 05/12/24 12:20 Alkaline Phosphatase 66 U/L (34-104) 05/12/24 12:20 Total Protein 8.2 gm/dl (6.0-8.3) 05/12/24 12:20 Albumin 4.6 gm/dl (3.4-5.0) 05/12/24 12:20 Globulin 3.6 gm/dl (2.5-4.0) 05/12/24 12:20 Albumin/Globulin Ratio 1.3 (0.9-2) 05/12/24 12:20 Triglycerides 163 mg/dl (0-150) H 05/13/24 05:54 Cholesterol 237 mg/dl (0-200) H 05/13/24 05:54 LDL Cholesterol, Calc 167 mg/dl 05/13/24 05:54 VLDL Cholesterol, Calc 33 mg/dl (0-30) H 05/13/24 05:54 HDL Cholesterol 37 mg/dl 05/13/24 05:54 Cholesterol/HDL Ratio 6.4 (0-5) H 05/13/24 05:54 25-OH Vitamin D Total 22.5 ng/ml (30-100) L 05/14/24 05:22 TSH 3.651 uIu/ml (0.300-4.500) 05/13/24 10:46 Lyme Disease Screen Positive (Negative) H 05/12/24 12:26 Lyme Tier 2 IgG Confirm Positive (Negative) H 05/12/24 12:26 Lyme Tier 2 IgM Confirm Negative (Negative) 05/12/24 12:26 Impressions Chest X-Ray 05/12/24 12:36 XR chest 1V portable HISTORY: Stroke symptoms. COMPARISON: None. FINDINGS: The lungs are clear. Cardiac silhouette is normal in size. No pleural effusions. No pneumothorax. Old left-sided rib fractures. Mild S-shaped scoliosis of the thoracolumbar spine. Calcifications within the aortic knob. IMPRESSION: No acute process. ACT 112: Negative or not required by law. Electronically signed by: Syed Walden M.D. 05/12/2024 12:[address] 05/12/24 12:[address] DOSE: 547.75 mGy.cm HISTORY: Neuro deficit, acute, stroke suspected TECHNIQUE: Multiaxial CT images of the head were performed without the use of intravenous contrast. Automated exposure control was utilized for this study. A dose lowering technique was utilized adhering to the principles of ALARA. Comparison: Brain MRI 08/27/2019. Findings: The paranasal sinuses and mastoid air cells are clear. The calvarium and skull base are intact. There is no mass, hematoma, or midline shift. White matter hypodensity is nonspecific but suggestive of microvascular ischemic change. The ventricles and sulci demonstrate mild age-related involutional changes. Wedge-shaped hypodensity within the right cerebellar hemisphere measuring up to 2.5 cm consistent with an acute to subacute infarct. There is an old linear lacunar infarct within the left cerebellar hemisphere. Impression: Wedge-shaped hypodensity within the right cerebellar hemisphere consistent with an acute to subacute cerebellar infarct. ACT 112: Negative or not required by law. Electronically signed by: Syed Walden M.D. 05/12/2024 1:04 PM Head CTA 05/12/24 13:42 HEAD & NECK CTA HISTORY: Fall. Stroke symptoms. TECHNIQUE: Multiaxial CT images of the head were performed following the intravenous administration of contrast to evaluate the major cerebral vessels. Multiaxial CT images of the neck were also performed following the intravenous administration of contrast to evaluate the major cervical vessels. 3D/MIP images were also obtained. Sagittal and coronal reformats were reviewed. A dose lowering technique was utilized adhering to the principles of ALARA. COMPARISON: Head CT 05/12/2024. FINDINGS: Redemonstration of the wedge-shaped hypodensity within the right cerebellar hemisphere consistent with an acute to subacute infarct Visualized intracranial internal carotid arteries, distal vertebral arteries, and basilar artery are widely patent. There is no significant stenosis, occlusion, or aneurysm seen within the bilateral ACAs, MCAs, or pharmacy sales assistant. The right posterior inferior cerebellar artery is only partially visualized and likely occluded. This likely accounts for the right cerebellar infarct.. The major dural venous sinuses are patent. The visualized aortic arch and normal in caliber. There is mild focal narrowing within the proximal left subclavian artery and mid right subclavian artery. Subtle irregularity within the mid bilateral internal carotid arteries and distal vertebral arteries suggesting the possibility of fibromuscular dysplasia. There is associated moderate focal narrowing within the distal right vertebral artery at the C2 level on image 219. This demonstrates up to 50% stenosis. However, no dissection identified. The left vertebral artery is dominant. Minimal calcified plaque within the right carotid bifurcation. There is no significant stenosis, occlusion, or dissection identified within the bilateral common carotid, internal carotid, or left vertebral artery. IMPRESSION: 1. Redemonstration of the wedge-shaped hypodensity within the right cerebellar hemisphere consistent with an acute to subacute infarct. 2. The right posterior inferior cerebellar artery is only partially visualized and likely occluded. This likely accounts for the right cerebellar infarct.. 3. Moderate focal narrowing within the distal right vertebral artery at the C2 level of approximately 50%. 4. Subtle irregularity within the mid bilateral internal carotid arteries and distal vertebral arteries suggesting the possibility of fibromuscular dysplasia. ACT 112: Negative or not required by law. Electronically signed by: Syed Walden M.D. 05/12/2024 2:43 PM Neck CTA 05/12/24 13:42 HEAD & NECK CTA HISTORY: Fall. Stroke symptoms. TECHNIQUE: Multiaxial CT images of the head were performed following the intravenous administration of contrast to evaluate the major cerebral vessels. Multiaxial CT images of the neck were also performed following the intravenous administration of contrast to evaluate the major cervical vessels. 3D/MIP images were also obtained. Sagittal and coronal reformats were reviewed. A dose lowering technique was utilized adhering to the principles of ALARA. COMPARISON: Head CT 05/12/2024. FINDINGS: Redemonstration of the wedge-shaped hypodensity within the right cerebellar hemisphere consistent with an acute to subacute infarct Visualized intracranial internal carotid arteries, distal vertebral arteries, and basilar artery are widely patent. There is no significant stenosis, occlusion, or aneurysm seen within the bilateral ACAs, MCAs, or pharmacy sales assistant. The right posterior inferior cerebellar artery is only partially visualized and likely occluded. This likely accounts for the right cerebellar infarct.. The major dural venous sinuses are patent. The visualized aortic arch and normal in caliber. There is mild focal narrowing within the proximal left subclavian artery and mid right subclavian artery. Subtle irregularity within the mid bilateral internal carotid arteries and distal vertebral arteries suggesting the possibility of fibromuscular dysplasia. There is associated moderate focal narrowing within the distal right vertebral artery at the C2 level on image 219. This demonstrates up to 50% stenosis. However, no dissection identified. The left vertebral artery is dominant. Minimal calcified plaque within the right carotid bifurcation. There is no significant stenosis, occlusion, or dissection identified within the bilateral common carotid, internal carotid, or left vertebral artery. IMPRESSION: 1. Redemonstration of the wedge-shaped hypodensity within the right cerebellar hemisphere consistent with an acute to subacute infarct. 2. The right posterior inferior cerebellar artery is only partially visualized and likely occluded. This likely accounts for the right cerebellar infarct.. 3. Moderate focal narrowing within the distal right vertebral artery at the C2 level of approximately 50%. 4. Subtle irregularity within the mid bilateral internal carotid arteries and distal vertebral arteries suggesting the possibility of fibromuscular dysplasia. ACT 112: Negative or not required by law. Electronically signed by: Syed Walden M.D. 05/12/2024 2:43 PM Brain MRI 05/12/24 13:43 Brain MRI WITHOUT CONTRAST HISTORY: R sided cerebellar cva TECHNIQUE: Multiplanar multisequence MRI of the brain was performed without the use of contrast. COMPARISON STUDY: Head CT 05/12/2024. Brain MRI 08/27/2019. FINDINGS: Wedge-shaped focus of restricted diffusion within the right cerebellar hemisphere measuring up to 3.4 cm consistent with an acute infarct. This is located within the right posterior inferior cerebellar artery territory. No additional acute infarcts within the brain. Mild edema at the right cerebral infarct without significant mass effect. Moderate atrophy and mild microvascular ischemic changes are noted. The midline structures are intact. There is no mass, hematoma, or midline shift. The major vascular flow-voids at the skull base are well-maintained. Old lacunar infarcts within the left cerebellar hemisphere. Prior bilateral lens replacement. The paranasal sinuses and mastoid air cells are clear. Punctate scattered foci of susceptibility artifact within the brain. This raises the possibility of cerebral amyloid angiopathy. IMPRESSION: 1. Confirmation of the acute right cerebral infarct involving the posterior inferior cerebellar artery territory. 2. Old small left cerebellar infarcts. 3. Atrophy and microvascular ischemic changes. 4. Punctate scattered foci of susceptibility artifact within the brain. This raises the possibility of cerebral amyloid angiopathy. No acute intracranial hemorrhage. ACT 112: Negative or not required by law. Electronically signed by: Syed Walden M.D. 05/12/2024 3:45 PM Hospital Course (1) Cerebellar stroke: (2) Dyslipidemia: (3) Dementia: (4) Osteoporosis: (5) Hypothyroidism: Plan (1) Cerebellar stroke: Plan: Right cerebellar infarct in the territory of Right PICA, likely morning of 05/12 - CT head, CTA head and neck, and MRI brain completed: results positive for acute right cerebellar infarct involving PICA and old smaller left cerebellar infarcts. Findings raise suspicion for cerebral amyloid angiopathy - Echo: EF= 55-60% - started on Atorvastatin 40mg PO qAM - Plavix 75mg PO qAM with Aspirin 81 mg PO qAM for 3 weeks of DAPT (till 06/03), and then will continue Plavix 75 mg as monotherapy (2) Dyslipidemia: Plan: - Lipid panel: TG 163, Cholesterol 237, LDL 167, VLDL 33 - Atorvastatin 40mg PO qAM as part of stroke protocol - Tolerating current dose, could be further increased as outpatient. (3) Dementia: Plan: - continue home medications: donepezil 10mg PO qAM and memantine 10mg PO BID - Mirtazapine 7.5 mg QD for recurrent night time awakenings (4) Osteoporosis: Plan: - continue on calcium carbonate 600mg PO qAM - Patient vitamin D level was decreased to 22.5, now normal after supplementing with vitamin d3 125 mcg (5) Hypothyroidism: Plan: - Most current TSH: 3.6 (05/13/2024) - Tolerating new levothyroxine dose of 37.5 mcg well and without issue Total Time Total Time Spent Total Time Spent (In Minutes): See attending attestation Discharge Plan Discharge Items Patient Disposition: Transfer Inpatient Rehab Fac Reason For Visit: CEREBELLAR STROKE Discharge Diagnosis: Right PICA stroke Activity: As commented below Activity Comment: Patient moving to acute rehabilitation facility [facility] for treatment Non-emergency contact: Primary Care Provider Call non-emergency contact if: you have any medication questions and your pain is not controlled Follow-up/Referrals: Arthur Telles, [Primary Care Provider] - Diet: Regular Addtl Attending Provider Instructions: You were admitted to the hospital for a right posterior inferior cerebellar artery stroke. You were treated with Plavix and aspirin therapy to be continued til 06/03 which will then be transitioned to Plavix monotherapy. A discharge summary will be sent to your primary care physician to ensure continuity of care. Please bring this discharge summary with you to your next office appointment so that your provider can review it at that time. Medications: Your medication list has been reviewed and reconciled upon discharge to ensure accuracy and continuity of care. An updated list of all your medications is included with your hospital discharge paperwork. Please review this list closely, and make note of any changes. Take your medications as instructed; do not skip a dose of your medicines. Make sure all of your doctors know every medicine you are taking (including [id number] medicines, vitamins, and supplements). Call your primary care provider before taking any new medicines (including [id number] medicines, vitamins, and supplements), because some of these may interact with your current medications, or may make your symptoms worse. Tell your primary care provider if you cannot afford your medications. CONTACT YOUR PRIMARY CARE PROVIDER if you experience any of the following: Difficulty following your treatment plan, or difficulty taking medications CALL 911 OR GO TO THE EMERGENCY DEPARTMENT if you experience any of the following: Sudden, severe abdominal pain or nausea/vomiting Severe chest pain, or chest pain that radiates (moves) to your jaw or arm Sudden, severe shortness of breath or difficulty breathing Thank you for allowing us to participate in your care. Pending Studies at Discharge: No Stand-Alone Forms: [facility], Medications to Prevent Stroke Skilled Items Patient informed of condition?: Yes DNR: Yes Discharge Level of Care: Acute rehab Communicable Disease: No Discharge Prognosis: Stable Lines: None Urinary Catheter: No Medications and DC Order Prescriptions: New atorvastatin 40 mg Tablet 40 mg PO QAM Qty: 30 0RF clopidogrel 75 mg Tablet 75 mg PO QAM Qty: 30 0RF levothyroxine [Synthroid] 25 mcg Tablet 37.5 mcg PO DAILYBB Qty: 30 0RF aspirin [Children's Aspirin] 81 mg Tablet,Chewable 81 mg PO QAM Qty: 30 0RF Continued mecobalamin (vitamin B12) 1,000 mcg tablet,chewable 1,000 mcg PO DAILY Qty: 30 5RF Rx Instructions: Start after 4 weeks of weekly IM therapy is completed. mirtazapine 7.5 mg tablet 7.5 mg PO DAILY Qty: 30 2RF calcium carbonate [Calcium 600] 600 mg calcium (1,500 mg) tablet 600 mg PO QAM memantine 10 mg tablet 10 mg PO BID 90 Days Qty: 180 3RF donepezil 10 mg tablet 10 mg PO QAM 90 Days Qty: 90 3RF Discontinued levothyroxine 25 mcg tablet 25 mcg PO DAILY Qty: 30 2RF Discharge Orders: Discharge Order (Routine); Ordered 05/19/24 Ordered By: Giovani Madera Admission Data Admit Date/Time: 05/12/24 15:56 Attending Provider: Kristina Stern Admit Provider: Jason Hummel V. Primary Care Provider: Arthur Telles Other Providers: [facility]; Marisela Patel at [place]; [facility]; [facility]; Lani Fernandez; Ed Hilton; Reymundo Garza Other Interventions: Discharge Summary Assessment (RN) Last Done: 05/19/24 16:56 Supervising Physician Co-Signing Physician Notes Attending Physician Supervision Note: I independently interviewed and examined the patient and verified the forde history and physical, reviewed labs and image studies and agree with findings and care plan noted above. Resident Activity Tracking Resident Involvement: Resident Care Provided Care Provided: Adult Hospital Medicine
[2024-05-19 16:57] VITALS: PULSE 67
== END 2024-05-19 17:15 | DRG 65 ==
LOC: ED 12:10 → SUATTDRO 15:56 → 2E 15:56 → 3E 05-18 15:29